=== PATIENT | female | born 1995 | race Caucasian/White ===

== ENCOUNTER 2018-04-11 17:05 | Observation (INO) | payer MEDICAID ==
[2018-04-11 18:40] LABS: BILIRUBIN INDIRECT 0.12
--- NOTE | 2018-04-12 10:52 | US ---
EXAM DATE: 04/11/18 PATIENT'S AGE: 23 Patient: PHAN OLIVER Facility: [place], [place] Site . Site : 1995 Study: US OB Pelvis [id number] 6:08:20 PM Ordering Physician: Sera Lazcano Final Report: INDICATION: Cholestasis TECHNIQUE: Ultrasound OB pelvis transabdominal. Real-time addison-scale imaging of the fetus was performed with color Doppler and spectral Doppler analysis of the umbilical artery without stress testing. COMPARISON: March 15, 2018. FINDINGS: Sonographic imaging demonstrates a single living intrauterine gestation. Fetus demonstrates a regular cardiac rate of 135 beats per minute. Amniotic fluid volume appears normal with an DEEPIKA of 16.1 cm. breathing movements, motion, and tone were all observed. IMPRESSION: Single viable intrauterine with a biophysical profile 11/03. Dictated by Sal Mcclellan MD @ Apr 11 2018 7:20PM (Electronic Signature) Report Signed by Proxy. SONA
== END 2018-04-11 18:45 | disposition home or self-care (01) ==
LOC: MW.OBCHECK 17:05 → MW.OB 17:07 → MW.OBCHECK 19:05
PROVIDERS: ADMIT Obstetrics & Gynecology; ATTEND Obstetrics & Gynecology
DX: O26.613 Liver and biliary tract disorders in pregnancy, third trimester (principal); K83.1 Obstruction of bile duct; Z3A.37 37 weeks gestation of pregnancy
CPT/HCPCS: 36415; 59025; 76819; 76819-26; 80076; 85025

== ENCOUNTER 2018-04-16 12:43 | Inpatient (IN) | payer MEDICAID ==
[2018-04-16] MEDS ORDERED: Sodium Chloride 0.9% 10 ML Syringe FLUSH PRN (12:58)
[2018-04-16] MEDS ORDERED: Ondansetron 4 MG/2 ML SDV IV PRN (12:58)
[2018-04-16] MEDS ORDERED: Sodium Chloride 0.9% 2.5 ML Syringe FLUSH PRN (12:58)
[2018-04-16] MEDS ORDERED: Terbutaline 1 MG/ML SDV SUBCUT PRN (12:58)
[2018-04-16] MEDS ORDERED: Carboprost Tromethamine 250 MCG/1 ML Amp IM PRN (12:58)
[2018-04-16] MEDS ORDERED: Misoprostol 25 MCG (1/4 of 100 MCG) Tab VAG PRN ×2 (12:58→17:00)
[2018-04-16] MEDS ORDERED: Tranexamic Acid 1,000 MG in Sodium Chloride 0.9% 100 ML IV PRN (12:58)
[2018-04-16] MEDS ORDERED: Misoprostol 200 MCG Tab PO PRN (12:58)
[2018-04-16] MEDS ORDERED: Lidocaine 1% 50 ML MDV INJECT PRN (12:58)
[2018-04-16] MEDS ORDERED: Methylergonovine 0.2 MG/1 ML Amp IM PRN (12:58)
[2018-04-16] MEDS ORDERED: Nalbuphine 10 MG/1 ML Vial IVPUSH PRN (12:58)
[2018-04-16] MEDS ORDERED: Misoprostol 25 MCG (1/4 of 100 MCG) Tab PO PRN ×2 (12:58→17:00)
[2018-04-16] MEDS ORDERED: Water For Irrigation,Sterile 1,000 ML Container IRR PRN (12:58)
[2018-04-16] MEDS ORDERED: Oxytocin/0.9 % Sodium Chloride 30 UNIT/500 ML BAG IV SCH ×2 (13:00)
[2018-04-16] MEDS: Lactated Ringers 1,000 ML IV SCH ×3 (13:25→21:08)
[2018-04-16] MEDS ORDERED: Diphtheria,Pertussis(Acell),Tetanus Vaccine 0.5 ML Syringe IM ONE (18:47)
--- NOTE | 2018-04-16 20:09 | PCM.LDHP ---
L&D History of Present Illness - General Date of Service: 04/16/18 Admit Problem/Dx: Patient Status Order with Admit Dx/Problem 04/16/18 12:58 Patient Status [ADT] Routine Admission Diagnosis/Problem Admission Diagnosis/Problem - planned Source of Information: Patient History Limitations: Reports: No Limitations - History of Present Illness Improves with: Reports: None Worsens with: Reports: None Associated Symptoms: Reports: N - Related Data Allergies/Adverse Reactions: Allergies Allergy/AdvReac Type Severity Reaction Status Date / Time Sulfa (Sulfonamide Allergy Intermediate Hives Verified 04/08/18 22:19 Antibiotics) Cephalosporins Allergy Hives Verified 04/08/18 22:19 Home Medications: Home Meds Sertraline HCl [Zoloft] 75 mg PO DAILY 03/16/18 [History] hydrALAZINE HCl [Hydralazine HCl] 50 mg PO DAILY 03/16/18 [History] hydrOXYzine pamoate [Vistaril] 25 - 50 mg PO Q8H PRN 04/16/18 [History] Past Medical History - Past Health History Medical/Surgical History: Denies Medical/Surgical History HEENT History: Reports: Otitis Media Other HEENT History: tonsilitis Respiratory History: Reports: Other (See Below) Other Respiratory History: pnuemonia 4 or 5 years ago Gastrointestinal History: Reports: None 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: , 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 Other OB/BYN History: IUD Psychiatric History: Reports: Anxiety, Depression Hematologic History: Reports: Idiopathic Thrombocytopenia, Other (See Below) Other Hematologic History: low platelets during - Infectious Disease History Infectious Disease History: Reports: Chicken Pox, Shingles - Past Surgical History GI Surgical History: Reports: Appendectomy Social & Family History - Family History Cardiac: Reports: Hypertension, [place] Other Cardiac Family History: mother OBGYN: Reports: Musculoskeletal: Reports: Arthritis Neurological: Reports: TIA Other Neurological Family History: mother Psychiatric: Reports: Depression Endocrine/Metabolic: Reports: Diabetes, type II Other Endocrine/Metabolic Family History: aunt and uncle Oncologic: Reports: Metastatic, Renal, Skin, Uterine - Caffeine Use Caffeine Use: Reports: None H&P Review of Systems - Review of Systems: Review Of Systems: See Below General: Reports: No Symptoms HEENT: Reports: No Symptoms Pulmonary: Reports: No Symptoms Cardiovascular: Reports: No Symptoms Gastrointestinal: Reports: No Symptoms Genitourinary: Reports: No Symptoms Musculoskeletal: Reports: No Symptoms Skin: Reports: No Symptoms Psychiatric: Reports: No Symptoms Neurological: Reports: No Symptoms Hematologic/Lymphatic: Reports: No Symptoms Immunologic: Reports: No Symptoms L&D Exam - Exam Exam: See Below - Vital Signs Weight: 63.503 kg - OB Specific Fundal Height In cm: 37 Contraction Intensity: Mild to Moderate Movement: Active Heart Tones: Present Presentation: Vertex - Mendoza Score Mendoza Score Cervix Position: Midposition Mendoza Score Consistency: Soft Mendoza Score Effacement: 51-70% Mendoza Score Dilation: 3-4 cm Mendoza Score 's Station: -2 Mendoza Score Total: 8 - Exam General: Alert, Oriented HEENT: PERRLA, Conjunctiva Clear, EACs Clear, EOMI, Hearing Intact, Mucosa Moist & [place]on, Nares Patent, Normal Nasal Septum, Posterior Pharynx Clear, TMs Clear Neck: Supple, Trachea Midline Lungs: Clear to Auscultation, Normal Respiratory Effort Cardiovascular: Regular Rate, Regular Rhythm GI/Abdominal Exam: Normal Bowel Sounds, Soft, Non-Tender, No Organomegaly, No Distention, No Abnormal Bruit, No Mass, Pelvis Stable Rectal Exam: Normal Exam, Normal Rectal Tone Genitourinary: Normal external exam, Normal bimanual exam, Normal speculum exam Back Exam: Normal Inspection, Full Range of Motion Extremities: Normal Inspection, Normal Range of Motion, Non-Tender, No Pedal Edema, Normal Capillary Refill Skin: Warm, Dry, Intact Neurological: Cranial Nerves Intact, Reflexes Equal Bilateral Psychiatric: Alert, Normal Affect, Normal Mood - Patient Data Lab Results Last 24 hrs: Laboratory Results - last 24 hr 04/16/18 04/16/18 Range/Units 13:20 13:20 WBC 8.16 (4.0-11.0) K/uL RBC 3.66 L (4.30-5.90) M/uL Hgb 10.6 L (12.0-16.0) g/dL Hct 32.1 L (36.0-46.0) % MCV 87.7 (80.0-98.0) fL MCH 29.0 (27.0-32.0) pg MCHC 33.0 (31.0-37.0) g/dL RDW Std Deviation 43.4 (28.0-62.0) fl RDW Coeff of Barber 14 (11.0-15.0) % Plt Count 98 L (150-400) K/uL MPV 12.00 (7.40-12.00) fL Nucleated RBC % 0.0 /100WBC Nucleated RBCs # 0 K/uL Blood Type B POSITIVE Antibody Screen NEGATIVE Result Diagrams: 04/16/18 13:20 Problem List Initiated/Reviewed/Updated: Yes Orders Last 24hrs: Active Orders 24 hr Category Date Time Status Patient Status [ADT] Routine ADT 04/16/18 12:58 Active Bedrest Bathroom Privileges [RC] ASDIRECTED Care 04/16/18 12:58 Active Communication Order [RC] ASDIRECTED Care 04/16/18 12:58 Active Communication Order [RC] ASDIRECTED Care 04/16/18 12:58 Active Communication Order [RC] ASDIRECTED Care 04/16/18 12:58 Active Heart Tones [RC] CONTINUOUS Care 04/16/18 12:58 Active Non Stress Test [RC] PER UNIT ROUTINE Care 04/16/18 12:58 Active May Shower [RC] ASDIRECTED Care 04/16/18 12:58 Active Notify Provider [RC] PRN Care 04/16/18 12:58 Active Notify Provider [RC] PRN Care 04/16/18 12:58 Active Notify Provider [RC] PRN Care 04/16/18 12:58 Active Notify Provider [RC] STAT Care 04/16/18 12:58 Active Oxygen Therapy [RC] ASDIRECTED Care 04/16/18 12:58 Active Peripheral IV Care [RC] . DIRECTED Care 04/16/18 12:58 Active Up ad Lizett [RC] ASDIRECTED Care 04/16/18 12:58 Active Vaccines to be Administered [RC] PER UNIT ROUTINE Care 04/16/18 18:47 Active Vaginal Exam [RC] PRN Care 04/16/18 12:58 Active Vaginal Exam [RC] PRN Care 04/16/18 12:58 Active Vital Signs [RC] PER UNIT ROUTINE Care 04/16/18 12:58 Active Vital Signs [RC] PER UNIT ROUTINE Care 04/16/18 12:58 Active Carboprost Tromethamine [Hemabate DS] Med 04/16/18 12:58 Active 250 mcg IM ASDIRECTED PRN Lactated Ringers [Ringers, Lactated] 1,000 ml Med 04/16/18 13:00 Active IV ASDIRECTED Lidocaine 1% [Xylocaine 1%] Med 04/16/18 12:58 Active 50 ml INJECT ONETIME PRN Methylergonovine [Methergine] Med 04/16/18 12:58 Active 0.2 mg IM ASDIRECTED PRN Nalbuphine [Nubain] Med 04/16/18 12:58 Active 10 mg IVPUSH Q1H PRN Ondansetron [Zofran] Med 04/16/18 12:58 Active 4 mg IV Q6H PRN Oxytocin/0.9 % Sodium Chloride [Oxytocin 30 Unit/500 ML Med 04/16/18 13:00 Active -NS] 30 unit in 500 ml IV TITRATE Oxytocin/0.9 % Sodium Chloride [Oxytocin 30 Unit/500 ML Med 04/16/18 13:00 Active -NS] 30 unit in 500 ml IV TITRATE Sodium Chloride 0.9% [Saline Flush] Med 04/16/18 12:58 Active 10 ml FLUSH ASDIRECTED PRN Sodium Chloride 0.9% [Saline Flush] Med 04/16/18 12:58 Active 2.5 ml FLUSH ASDIRECTED PRN Terbutaline [Brethine] Med 04/16/18 12:58 Active 0.25 mg SUBCUT ASDIRECTED PRN Tranexamic Acid [Cyklokapron] 1,000 mg Med 04/16/18 12:58 Active Sodium Chloride 0.9% [Normal Saline] 100 ml IV ONETIME Water For Irrigation,Sterile [Sterile Water for Med 04/16/18 12:58 Active Irrigation] 1,000 ml IRR ASDIRECTED PRN miSOPROStol [Cytotec] Med 04/16/18 12:58 Active 200 mcg PO ONETIME PRN miSOPROStol [Cytotec] Med 04/16/18 12:58 Active 25 mcg PO ONETIME PRN miSOPROStol [Cytotec] Med 04/16/18 17:00 Active 25 mcg PO Q4H PRN miSOPROStol [Cytotec] Med 04/16/18 12:58 Active 25 mcg VAG ONETIME PRN miSOPROStol [Cytotec] Med 04/16/18 17:00 Active 25 mcg VAG Q4H PRN Scalp Electrode [WOMSER] Per Unit Routine Oth 04/16/18 12:58 Ordered Medication Administration Instruction [OM.PC] Q3H Oth 04/16/18 13:00 Ordered Peripheral IV Insertion Adult [OM.PC] Routine Oth 04/16/18 12:58 Ordered Resuscitation Status Routine Resus Stat 04/16/18 12:58 Ordered Medication Orders Carboprost Tromethamine (Hemabate Ds) 250 mcg IM ASDIRECTED PRN PRN Reason: Post Hemorrhage Lactated Ringer's (Ringers, Lactated) 1,000 mls @ 150 mls/hr IV ASDIRECTED MICHAEL Last Admin: 04/16/18 13:25 Dose: 150 mls/hr Oxytocin/Sodium Chloride (Oxytocin 30 Unit/500 Ml-Ns) 30 unit in 500 mls @ 999 mls/hr IV TITRATE MICHAEL Oxytocin/Sodium Chloride (Oxytocin 30 Unit/500 Ml-Ns) 30 unit in 500 mls @ 2 mls/hr IV TITRATE MICHAEL; Protocol Tranexamic Acid 1,000 mg/ (Sodium Chloride) 110 mls @ 660 mls/hr IV ONETIME PRN PRN Reason: Bleeding Lidocaine HCl (Xylocaine 1%) 50 ml INJECT ONETIME PRN PRN Reason: Laceration repair Methylergonovine Maleate (Methergine) 0.2 mg IM ASDIRECTED PRN PRN Reason: Post Hemorrhage Misoprostol (Cytotec) 200 mcg PO ONETIME PRN PRN Reason: Post Hemorrhage Misoprostol (Cytotec) 25 mcg VAG ONETIME PRN PRN Reason: Cervical Ripening Last Admin: 04/16/18 14:58 Dose: 25 mcg Misoprostol (Cytotec) 25 mcg VAG Q4H PRN PRN Reason: Cervical Ripening Misoprostol (Cytotec) 25 mcg PO ONETIME PRN PRN Reason: Cervical Ripening Last Admin: 04/16/18 14:58 Dose: 25 mcg Misoprostol (Cytotec) 25 mcg PO Q4H PRN PRN Reason: Cervical Ripening Nalbuphine HCl (Nubain) 10 mg IVPUSH Q1H PRN PRN Reason: Pain (severe 7-10) Ondansetron HCl (Zofran) 4 mg IV Q6H PRN PRN Reason: Nausea/Vomiting Sodium Chloride (Saline Flush) 10 ml FLUSH ASDIRECTED PRN PRN Reason: Keep Vein Open Sodium Chloride (Saline Flush) 2.5 ml FLUSH ASDIRECTED PRN PRN Reason: Keep Vein Open Sterile Water (Sterile Water For Irrigation) 1,000 ml IRR ASDIRECTED PRN PRN Reason: delivery Terbutaline Sulfate (Brethine) 0.25 mg SUBCUT ASDIRECTED PRN PRN Reason: Tacysystole Assessment/Plan Comment:: Pt. 38+ 2 admitted for elective induction because of Cholestasis. She will be induced with Cytotec and pitocin. she can have epidural when it is appropriate.
[2018-04-16] MEDS ORDERED: Lidocaine HCl/EPINEPHrine 5 ML IJ ONE (20:56)
[2018-04-16] MEDS ORDERED: Ropivacaine 0.2% 2 MG/ML 20 ML SDV ONE (20:56)
[2018-04-16] MEDS ORDERED: Ropivacaine HCl/PF 100 ML ONE (20:57)
[2018-04-16] MEDS ORDERED: fentaNYL 100 MCG/2 ML SDV ONE (20:57)
--- NOTE | 2018-04-16 21:44 | PCM.PREANE ---
Preanesthetic Assessment - Anesthesia/Transfusion/Family Hx Family History of Anesthesia Reaction: No - Review of Systems General: No Symptoms Pulmonary: No Symptoms Cardiovascular: No Symptoms Gastrointestinal: No Symptoms Neurological: No Symptoms Other: Reports: None (Denies any bleeding tendency or family hx of bleeding problems despite low platelets) - Physical Assessment Height: 1.6 m Weight: 63.503 kg ASA Class: 3 Mental Status: Alert & Oriented x3 Airway Class: Mallampati = 2 Dentition: Reports: Normal Dentition ROM/Head Extension: Full - Lab Values: Laboratory Last Values WBC 8.16 K/uL (4.0-11.0) 04/16/18 13:20 RBC 3.66 M/uL (4.30-5.90) L 04/16/18 13:20 Hgb 10.6 g/dL (12.0-16.0) L 04/16/18 13:20 Hct 32.1 % (36.0-46.0) L 04/16/18 13:20 MCV 87.7 fL (80.0-98.0) 04/16/18 13:20 MCH 29.0 pg (27.0-32.0) 04/16/18 13:20 MCHC 33.0 g/dL (31.0-37.0) 04/16/18 13:20 RDW Std Deviation 43.4 fl (28.0-62.0) 04/16/18 13:20 RDW Coeff of Barber 14 % (11.0-15.0) 04/16/18 13:20 Plt Count 98 K/uL (150-400) L 04/16/18 13:20 MPV 12.00 fL (7.40-12.00) 04/16/18 13:20 Nucleated RBC % 0.0 /100WBC 04/16/18 13:20 Nucleated RBCs # 0 K/uL 04/16/18 13:20 Blood Type B POSITIVE 04/16/18 13:20 Antibody Screen NEGATIVE 04/16/18 13:20 - Allergies Allergies/Adverse Reactions: Allergies Allergy/AdvReac Type Severity Reaction Status Date / Time Sulfa (Sulfonamide Allergy Intermediate Hives Verified 04/08/18 22:19 Antibiotics) Cephalosporins Allergy Hives Verified 04/08/18 22:19 - Acknowledgements Anesthesia Type Planned: Epidural Pt an Appropriate Candidate for the Planned Anesthesia: Yes Alternatives and Risks of Anesthesia Discussed w Pt/Guardian: Yes Pt/Guardian Understands and Agrees with Anesthesia Plan: Yes PreAnesthesia Questionnaire - Past Health History Medical/Surgical History: Denies Medical/Surgical History HEENT History: Reports: Otitis Media Other HEENT History: tonsilitis Respiratory History: Reports: Other (See Below) Other Respiratory History: pnuemonia 4 or 5 years ago Gastrointestinal History: Reports: None 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: , 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 Other OB/BYN History: IUD Psychiatric History: Reports: Anxiety, Depression Hematologic History: Reports: Idiopathic Thrombocytopenia, Other (See Below) Other Hematologic History: low platelets during - Infectious Disease History Infectious Disease History: Reports: Chicken Pox, Shingles - Past Surgical History GI Surgical History: Reports: Appendectomy - HOME MEDS Home Medications: Home Meds Sertraline HCl [Zoloft] 75 mg PO DAILY 03/16/18 [History] hydrALAZINE HCl [Hydralazine HCl] 50 mg PO DAILY 03/16/18 [History] hydrOXYzine pamoate [Vistaril] 25 - 50 mg PO Q8H PRN 04/16/18 [History] - CURRENT (IN HOUSE) MEDS Current Meds: Current Medications Carboprost Tromethamine (Hemabate Ds) 250 mcg IM ASDIRECTED PRN PRN Reason: Post Hemorrhage Lactated Ringer's (Ringers, Lactated) 1,000 mls @ 150 mls/hr IV ASDIRECTED MICHAEL Last Admin: 04/16/18 21:08 Dose: 150 mls/hr Oxytocin/Sodium Chloride (Oxytocin 30 Unit/500 Ml-Ns) 30 unit in 500 mls @ 999 mls/hr IV TITRATE MICHAEL Oxytocin/Sodium Chloride (Oxytocin 30 Unit/500 Ml-Ns) 30 unit in 500 mls @ 2 mls/hr IV TITRATE MICHAEL; Protocol Last Admin: 04/16/18 20:09 Dose: 2 munits/min, 2 mls/hr Tranexamic Acid 1,000 mg/ (Sodium Chloride) 110 mls @ 660 mls/hr IV ONETIME PRN PRN Reason: Bleeding Lidocaine HCl (Xylocaine 1%) 50 ml INJECT ONETIME PRN PRN Reason: Laceration repair Methylergonovine Maleate (Methergine) 0.2 mg IM ASDIRECTED PRN PRN Reason: Post Hemorrhage Misoprostol (Cytotec) 200 mcg PO ONETIME PRN PRN Reason: Post Hemorrhage Misoprostol (Cytotec) 25 mcg VAG ONETIME PRN PRN Reason: Cervical Ripening Last Admin: 04/16/18 14:58 Dose: 25 mcg Misoprostol (Cytotec) 25 mcg VAG Q4H PRN PRN Reason: Cervical Ripening Misoprostol (Cytotec) 25 mcg PO ONETIME PRN PRN Reason: Cervical Ripening Last Admin: 04/16/18 14:58 Dose: 25 mcg Misoprostol (Cytotec) 25 mcg PO Q4H PRN PRN Reason: Cervical Ripening Nalbuphine HCl (Nubain) 10 mg IVPUSH Q1H PRN PRN Reason: Pain (severe 7-10) Ondansetron HCl (Zofran) 4 mg IV Q6H PRN PRN Reason: Nausea/Vomiting Sodium Chloride (Saline Flush) 10 ml FLUSH ASDIRECTED PRN PRN Reason: Keep Vein Open Sodium Chloride (Saline Flush) 2.5 ml FLUSH ASDIRECTED PRN PRN Reason: Keep Vein Open Sterile Water (Sterile Water For Irrigation) 1,000 ml IRR ASDIRECTED PRN PRN Reason: delivery Terbutaline Sulfate (Brethine) 0.25 mg SUBCUT ASDIRECTED PRN PRN Reason: Tacysystole Discontinued Medications Diphtheria/Tetanus/Acell Pertussis (Adacel) 0.5 ml IM .ONCE ONE Stop: 04/16/18 18:48 Fentanyl (Sublimaze) Confirm Administered Dose 300 mcg .ROUTE .STK-MED ONE Stop: 04/16/18 20:58 Ropivacaine (Naropin 0.2%) Confirm Administered Dose 100 mls @ as directed .ROUTE .STK-MED ONE Stop: 04/16/18 20:58 Lidocaine/Epinephrine (Lidocaine 1.5%-Epi 1:200,000) Confirm Administered Dose 5 ml IJ .STK-MED ONE Stop: 04/16/18 20:57 Ropivacaine (Naropin 0.2%) Confirm Administered Dose 20 ml .ROUTE .STK-MED ONE Stop: 04/16/18 20:57
[2018-04-16] MEDS ORDERED: Witch Hazel Medicated Pads 40/Jar TOP PRN (22:32)
[2018-04-16] MEDS ORDERED: oxyCODONE 5 MG Tab PO PRN (22:32)
[2018-04-16] MEDS ORDERED: Ibuprofen 400 MG Tab PO PRN (22:32)
[2018-04-16] MEDS ORDERED: Docusate Sodium 100 MG Cap PO PRN (22:32)
[2018-04-16] MEDS ORDERED: Benzocaine/Menthol 20%-0.5% Spray 78 GM Cannister TOP PRN (22:32)
[2018-04-16] MEDS ORDERED: Lanolin 100% Cream 7 GM Tube TOP PRN (22:32)
[2018-04-16] MEDS ORDERED: Bisacodyl 10 MG Supp RECTAL PRN (22:32)
[2018-04-16] MEDS ORDERED: Acetaminophen 500 MG Tab PO PRN ×2 (22:32)
--- NOTE | 2018-04-17 01:14 | OR ---
SURGEON: Neno Zamora MD DATE OF PROCEDURE: Ms. Samano is 23-year-old. She is para 1-0-0-1. She is followed jointly by me and our nurse functional mental disability teacher. Her is complicated by cholestasis at the late of her . She was 36 + 3. She was admitted for elective induction because of extensive itching. Her GBS status was negative. The patient was induced with Cytotec and Pitocin. She responded to that very well. When she was 5 cm, she had an artificial rupture of the membrane by me with clear fluid. The patient was 5, complete vertex, and -1 station. She had epidural anesthesia for labor analgesia, and then proceeded later on to be complete and she pushed for about 35 minutes, and she was able to accomplish normal spontaneous vaginal delivery of a male fetus, cried immediately, and the placenta delivered spontaneous, complete, and intact. There was no need for episiotomy. There was no labial or perineal laceration. Estimated blood loss was 250 to 300 mL. heart rate was category 1 through the entire process of labor. There was no complication in the labor or the . KERI / JOHN /[id number]
[2018-04-17] MEDS: Ibuprofen 800 MG Tab PO PRN ×3 (10:20→23:24)
--- NOTE | 2018-04-17 11:18 | PCM48HPAN ---
Post Anesthesia Note - EVALUATION WITHIN 48HRS OF ANESTHETIC Vital Signs in Normal Range: Yes Patient Participated in Evaluation: Yes Respiratory Function Stable: Yes Airway Patent: Yes Cardiovascular Function Stable: Yes Hydration Status Stable: Yes Pain Control Satisfactory: Yes Nausea and Vomiting Control Satisfactory: Yes Mental Status Recovered: Yes Resp Rate: 20 - COMMENTS/OBSERVATIONS Free Text/Narrative:: Denies any complaints at this time.
--- NOTE | 2018-04-17 11:24 | PCM.PNPP ---
- General Info Date of Service: 04/17/18 Functional Status: Reports: Pain Controlled - Review of Systems General: Reports: No Symptoms HEENT: Reports: No Symptoms Pulmonary: Reports: No Symptoms Cardiovascular: Reports: No Symptoms Gastrointestinal: Reports: No Symptoms Genitourinary: Reports: No Symptoms Musculoskeletal: Reports: No Symptoms Skin: Reports: No Symptoms Neurological: Reports: No Symptoms Psychiatric: Reports: No Symptoms - General Info Date of Service: 04/17/18 - Patient Data Vital Signs - Most Recent: Last Vital Signs Temp 36.5 C 04/17/18 09:00 Pulse 68 04/17/18 09:00 Resp 20 04/17/18 11:17 BP 112/81 04/17/18 09:00 Pulse Ox 96 04/17/18 09:00 Weight - Most Recent: 63.503 kg Lab Results - Last 24 Hours: Laboratory Results - last 24 hr 04/16/18 04/16/18 04/17/18 Range/Units 13:20 13:20 05:54 WBC 8.16 (4.0-11.0) K/uL RBC 3.66 L (4.30-5.90) M/uL Hgb 10.6 L 10.7 L (12.0-16.0) g/dL Hct 32.1 L 31.8 L (36.0-46.0) % MCV 87.7 (80.0-98.0) fL MCH 29.0 (27.0-32.0) pg MCHC 33.0 (31.0-37.0) g/dL RDW Std Deviation 43.4 (28.0-62.0) fl RDW Coeff of Barber 14 (11.0-15.0) % Plt Count 98 L (150-400) K/uL MPV 12.00 (7.40-12.00) fL Nucleated RBC % 0.0 /100WBC Nucleated RBCs # 0 K/uL Blood Type B POSITIVE Antibody Screen NEGATIVE Med Orders - Current: Current Medications Acetaminophen (Tylenol Extra Strength) 500 mg PO Q4H PRN PRN Reason: Pain Acetaminophen (Tylenol Extra Strength) 1,000 mg PO Q4H PRN PRN Reason: Pain Benzocaine/Menthol (Dermoplast Pain Relief 20%-0.5% [place]) 78 gm TOP ASDIRECTED PRN PRN Reason: Perineal Comfort Measure Bisacodyl (Dulcolax) 10 mg RECTAL ONETIME PRN PRN Reason: Constipation Carboprost Tromethamine (Hemabate Ds) 250 mcg IM ASDIRECTED PRN PRN Reason: Post Hemorrhage Docusate Sodium (Colace) 100 mg PO BID PRN PRN Reason: Constipation Emollient Ointment (Lansinoh Hpa) 0 gm TOP ASDIRECTED PRN PRN Reason: Sore Nipples Lactated Ringer's (Ringers, Lactated) 1,000 mls @ 150 mls/hr IV ASDIRECTED MICHAEL Last Admin: 04/16/18 21:08 Dose: 150 mls/hr Oxytocin/Sodium Chloride (Oxytocin 30 Unit/500 Ml-Ns) 30 unit in 500 mls @ 999 mls/hr IV TITRATE MICHAEL Oxytocin/Sodium Chloride (Oxytocin 30 Unit/500 Ml-Ns) 30 unit in 500 mls @ 2 mls/hr IV TITRATE MICHAEL; Protocol Last Admin: 04/16/18 20:09 Dose: 2 munits/min, 2 mls/hr Tranexamic Acid 1,000 mg/ (Sodium Chloride) 110 mls @ 660 mls/hr IV ONETIME PRN PRN Reason: Bleeding Ibuprofen (Motrin) 400 mg PO Q4H PRN PRN Reason: Pain Ibuprofen (Motrin) 800 mg PO Q6H PRN PRN Reason: Pain Last Admin: 04/17/18 10:20 Dose: 800 mg Lidocaine HCl (Xylocaine 1%) 50 ml INJECT ONETIME PRN PRN Reason: Laceration repair Methylergonovine Maleate (Methergine) 0.2 mg IM ASDIRECTED PRN PRN Reason: Post Hemorrhage Misoprostol (Cytotec) 200 mcg PO ONETIME PRN PRN Reason: Post Hemorrhage Misoprostol (Cytotec) 25 mcg VAG ONETIME PRN PRN Reason: Cervical Ripening Last Admin: 04/16/18 14:58 Dose: 25 mcg Misoprostol (Cytotec) 25 mcg VAG Q4H PRN PRN Reason: Cervical Ripening Misoprostol (Cytotec) 25 mcg PO ONETIME PRN PRN Reason: Cervical Ripening Last Admin: 04/16/18 14:58 Dose: 25 mcg Misoprostol (Cytotec) 25 mcg PO Q4H PRN PRN Reason: Cervical Ripening Nalbuphine HCl (Nubain) 10 mg IVPUSH Q1H PRN PRN Reason: Pain (severe 7-10) Ondansetron HCl (Zofran) 4 mg IV Q6H PRN PRN Reason: Nausea/Vomiting Oxycodone HCl (Oxycodone) 5 mg PO Q2H PRN PRN Reason: Pain Sodium Chloride (Saline Flush) 10 ml FLUSH ASDIRECTED PRN PRN Reason: Keep Vein Open Sodium Chloride (Saline Flush) 2.5 ml FLUSH ASDIRECTED PRN PRN Reason: Keep Vein Open Sterile Water (Sterile Water For Irrigation) 1,000 ml IRR ASDIRECTED PRN PRN Reason: delivery Terbutaline Sulfate (Brethine) 0.25 mg SUBCUT ASDIRECTED PRN PRN Reason: Tacysystole Witch Nancy (Tucks) 1 pad TOP ASDIRECTED PRN PRN Reason: comfort care Discontinued Medications Diphtheria/Tetanus/Acell Pertussis (Adacel) 0.5 ml IM .ONCE ONE Stop: 04/16/18 18:48 Fentanyl (Sublimaze) Confirm Administered Dose 300 mcg .ROUTE .STK-MED ONE Stop: 04/16/18 20:58 Ropivacaine (Naropin 0.2%) Confirm Administered Dose 100 mls @ as directed .ROUTE .STK-MED ONE Stop: 04/16/18 20:58 Lidocaine/Epinephrine (Lidocaine 1.5%-Epi 1:200,000) Confirm Administered Dose 5 ml IJ .STK-MED ONE Stop: 04/16/18 20:57 Ropivacaine (Naropin 0.2%) Confirm Administered Dose 20 ml .ROUTE .STK-MED ONE Stop: 04/16/18 20:57 - Interaction Infant Disposition, : in Room with Family Interaction: Holding Feeding: Attempted ; Nursed Fair/Poor Support Person: Significant Other - Recovery Exam Fundal Tone: Firm Fundal Level: 1 Fingerbreadths Below Umbilicus Fundal Placement: Right Lochia Amount: Scant, Small Lochia Color: Rubra/Red Perineum Description: Intact, Minimal Bruising/Swelling Episiotomy/Laceration: None Bladder Status: Voiding Urinary Elimination: Voided - Exam General: Alert, Oriented HEENT: Pupils Equal Neck: Supple Lungs: Clear to Auscultation, Normal Respiratory Effort Cardiovascular: Regular Rate, Regular Rhythm GI/Abdominal Exam: Normal Bowel Sounds, Soft, Non-Tender, No Organomegaly, No Distention, No Abnormal Bruit, No Mass, Pelvis Stable Extremities: Normal Inspection, Normal Range of Motion, Non-Tender, No Pedal Edema, Normal Capillary Refill Skin: Warm, Dry, Intact Wound/Incisions: Healing Well Neurological: No New Focal Deficit Psy/Mental Status: Alert, Normal Affect, Normal Mood - Problem List Review Problem List Initiated/Reviewed/Updated: Yes - My Orders Last 24 Hours: My Active Orders 04/16/18 12:58 Carboprost Tromethamine [Hemabate DS] 250 mcg IM ASDIRECTED PRN Lidocaine 1% [Xylocaine 1%] 50 ml INJECT ONETIME PRN Methylergonovine [Methergine] 0.2 mg IM ASDIRECTED PRN Nalbuphine [Nubain] 10 mg IVPUSH Q1H PRN Ondansetron [Zofran] 4 mg IV Q6H PRN Sodium Chloride 0.9% [Saline Flush] 10 ml FLUSH ASDIRECTED PRN Sodium Chloride 0.9% [Saline Flush] 2.5 ml FLUSH ASDIRECTED PRN Terbutaline [Brethine] 0.25 mg SUBCUT ASDIRECTED PRN Tranexamic Acid [Cyklokapron] 1,000 mg Sodium Chloride 0.9% [Normal Saline] 100 ml IV ONETIME Water For Irrigation,Sterile [Sterile Water for Irrigation] 1,000 ml IRR ASDIRECTED PRN miSOPROStol [Cytotec] 200 mcg PO ONETIME PRN miSOPROStol [Cytotec] 25 mcg PO ONETIME PRN miSOPROStol [Cytotec] 25 mcg VAG ONETIME PRN Scalp Electrode [WOMSER] Per Unit Routine Peripheral IV Insertion Adult [OM.PC] Routine Resuscitation Status Routine 04/16/18 13:00 Lactated Ringers [Ringers, Lactated] 1,000 ml IV ASDIRECTED Oxytocin/0.9 % Sodium Chloride [Oxytocin 30 Unit/500 ML-NS] 30 unit in 500 ml IV TITRATE Oxytocin/0.9 % Sodium Chloride [Oxytocin 30 Unit/500 ML-NS] 30 unit in 500 ml IV TITRATE Medication Administration Instruction [OM.PC] Q3H 04/16/18 17:00 miSOPROStol [Cytotec] 25 mcg PO Q4H PRN miSOPROStol [Cytotec] 25 mcg VAG Q4H PRN 04/16/18 22:32 Patient Status [ADT] Routine May Shower [RC] ASDIRECTED Up ad Lizett [RC] ASDIRECTED Vital Signs [RC] PER UNIT ROUTINE Acetaminophen [Tylenol Extra Strength] 1,000 mg PO Q4H PRN Acetaminophen [Tylenol Extra Strength] 500 mg PO Q4H PRN Benzocaine/Menthol [Dermoplast Pain Relief 20%-0.5% [place]] 78 gm TOP ASDIRECTED PRN Bisacodyl [Dulcolax] 10 mg RECTAL ONETIME PRN Docusate Sodium [Colace] 100 mg PO BID PRN Ibuprofen [Motrin] 400 mg PO Q4H PRN Ibuprofen [Motrin] 800 mg PO Q6H PRN Lanolin [Lansinoh HPA] See Dose Instructions TOP ASDIRECTED PRN Witch Nancy [Tucks] 1 pad TOP ASDIRECTED PRN oxyCODONE 5 mg PO Q2H PRN Assess Lochia [WOMSER] Per Unit Routine Assess Uterine Involution [WOMSER] Per Unit Routine Peripheral IV Discontinue [OM.PC] Routine - Assessment Assessment:: S/P she like to be discharge today. - Plan Plan:: Pt. 38+ 2 admitted for elective induction because of Cholestasis. She will be induced with Cytotec and pitocin. she can have epidural when it is appropriate.
[2018-04-17 20:36] VITALS: BP 135/80
== END 2018-04-18 00:10 | disposition home or self-care (01) | DRG 805 ==
LOC: MW.OB 12:43 → OBSVTOIN 22:32 → MW.OB 22:32
PROVIDERS: ADMIT Obstetrics & Gynecology; ATTEND Obstetrics & Gynecology
PROC: 3E033VJ Introduction of Other Hormone into Peripheral Vein, Percutaneous Approach (ICD-10-PCS; principal; 2018-04-16)
PROC: 10907ZC Drainage of Amniotic Fluid, Therapeutic from Products of Conception, Via Natural or Artificial Opening (ICD-10-PCS; principal; 2018-04-16)
PROC: 10E0XZZ Delivery of Products of Conception, External Approach (ICD-10-PCS; principal; 2018-04-16)
PROC: 3E0P7VZ Introduction of Hormone into Female Reproductive, Via Natural or Artificial Opening (ICD-10-PCS; principal; 2018-04-16)
PROC: 00HU33Z Insertion of Infusion Device into Spinal Canal, Percutaneous Approach (ICD-10-PCS; 2018-04-16)
PROC: 3E0R3BZ Introduction of Anesthetic Agent into Spinal Canal, Percutaneous Approach (ICD-10-PCS; 2018-04-16)
DX: O26.62 Liver and biliary tract disorders in childbirth (principal); K83.1 Obstruction of bile duct; Z37.0 Single live birth; O99.12 Other diseases of the blood and blood-forming organs and certain disorders involving the immune mechanism complicating childbirth; D69.3 Immune thrombocytopenic purpura; O99.344 Other mental disorders complicating childbirth; F41.9 Anxiety disorder, unspecified; F32.9 Major depressive disorder, single episode, unspecified; Z88.1 Allergy status to other antibiotic agents; Z88.2 Allergy status to sulfonamides; Z79.899 Other long term (current) drug therapy; Z3A.38 38 weeks gestation of pregnancy
CPT/HCPCS: 01967; 36415; 59025; 59409; 85014; 85018; 85027; 86850; 86900; 86901; A9270-GY; J2590; J2795; J3010; J7120

== ENCOUNTER 2018-06-24 22:00 | Emergency (ER) | payer MEDICAID ==
--- NOTE | 2018-06-24 22:38 | EDM.PDOC ---
ED HPI GENERAL MEDICAL PROBLEM - General Chief Complaint: Eye Problems Stated Complaint: PINK EYE Time Seen by Provider: 06/24/18 22:30 - History of Present Illness INITIAL COMMENTS - FREE TEXT/NARRATIVE: HISTORY AND PHYSICAL: History of present illness: Patient 23-year-old female presents with concern of pinkeye her children had similar infection recently she also complains of sore throat. Review of systems: As per history of present illness and below otherwise all systems reviewed and negative. Past medical history: As per history of present illness and as reviewed below otherwise noncontributory. Surgical history: As per history of present illness and as reviewed below otherwise noncontributory. Social history: No reported history of drug or alcohol abuse. Family history: As per history of present illness and as reviewed below otherwise noncontributory. Physical exam: HEENT: Atraumatic, normocephalic, pupils reactive, injected conjunctiva negative for conjunctival pallor or scleral icterus, mucous membranes moist, throat clear, neck supple, nontender, trachea midline. Lungs: Clear to auscultation, breath sounds equal bilaterally, chest nontender. Heart: S1S2, regular, negative for clicks, rubs, or JVD. Abdomen: Soft, nondistended, nontender. Negative for masses or hepatosplenomegaly. Negative for costovertebral tenderness. Pelvis: Stable nontender. Genitourinary: Deferred. Rectal: Deferred. Extremities: Atraumatic, negative for cords or calf pain. Neurovascular unremarkable. Neuro: Awake, alert, oriented. Cranial nerves II through XII unremarkable. Cerebellum unremarkable. Motor and sensory unremarkable throughout. Exam nonfocal. Diagnostics: Rapid strep Therapeutics: None Impression: #1 conjunctivitis Definitive disposition and diagnosis as appropriate pending reevaluation and review of above. Right Eye Pain Score (Numeric/FACES): 7 - Related Data Allergies Allergy/AdvReac Type Severity Reaction Status Date / Time Sulfa (Sulfonamide Allergy Intermediate Hives Verified 06/24/18 22:07 Antibiotics) Cephalosporins Allergy Hives Verified 06/24/18 22:07 Home Meds: Home Meds . 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 Other BOX PRESS OPERATOR History: IUD Psychiatric History: Reports: Anxiety, Depression Hematologic History: Reports: Idiopathic Thrombocytopenia, Other (See Below) Other Hematologic History: low platelets during - Infectious Disease History Infectious Disease History: Reports: Chicken Pox, Shingles - Past Surgical History GI Surgical History: Reports: Appendectomy Social & Family History - Family History Cardiac: Reports: Hypertension, [place] Other Cardiac Family History: mother OBGYN: Reports: Musculoskeletal: Reports: Arthritis Neurological: Reports: TIA Other Neurological Family History: mother Psychiatric: Reports: Depression Endocrine/Metabolic: Reports: Diabetes, type II Other Endocrine/Metabolic Family History: aunt and uncle Oncologic: Reports: Metastatic, Renal, Skin, Uterine - Tobacco Use Smoking Status *Q: Current Every Day Smoker Years of Tobacco use: 5 Packs/Tins Daily: 0.5 - Caffeine Use Caffeine Use: Reports: Soda - Recreational Drug Use Recreational Drug Use: No ED ROS GENERAL - Review of Systems Review Of Systems: ROS reveals no pertinent complaints other than HPI. ED EXAM GENERAL W FULL EYE - Physical Exam Exam: See Below (See dictation) Course - Vital Signs Last Recorded V/S: Last Vital Signs Temp 36.9 C 06/24/18 22:13 Pulse 86 06/24/18 22:13 Resp 16 06/24/18 22:13 BP 119/83 06/24/18 22:13 Pulse Ox 99 06/24/18 22:13 Departure - Departure Time of Disposition: 22:37 Disposition: Home, Self-Care 01 Condition: Good Clinical Impression: Conjunctivitis - Discharge Information Referrals: PCP,None [Primary Care Provider] - Additional Instructions: The following information is given to patients seen in the emergency department who are being discharged to home. This information is to outline your options for follow-up care. We provide all patients seen in our emergency department with a follow-up referral. The need for follow-up, as well as the timing and circumstances, are variable depending upon the specifics of your emergency department visit. If you don't have a primary care physician on staff, we will provide you with a referral. We always advise you to contact your personal physician following an emergency department visit to inform them of the circumstance of the visit and for follow-up with them and/or the need for any referrals to a consulting specialist. The emergency department will also refer you to a specialist when appropriate. This referral assures that you have the opportunity for followup care with a specialist. All of these measure are taken in an effort to provide you with optimal care, which includes your followup. Under all circumstances we always encourage you to contact your private physician who remains a resource for coordinating your care. When calling for followup care, please make the office aware that this follow-up is from your recent emergency room visit. If for any reason you are refused follow-up, please contact the [facility] emergency department at and asked to speak to the emergency department charge nurse. [facility] [address] [place] [id number] Tobramycin ophthalmic drops as prescribed follow-up ophthalmology as needed as discussed return as needed as discussed
[2018-06-24 23:16] VITALS: BP 107/75
== END 2018-06-24 23:12 | disposition home or self-care (01) ==
LOC: MW.ED 22:00
DX: H10.9 Unspecified conjunctivitis (principal); F17.210 Nicotine dependence, cigarettes, uncomplicated; Z88.2 Allergy status to sulfonamides; Z88.1 Allergy status to other antibiotic agents
CPT/HCPCS: 87081; 87880-QW; 99283

== ENCOUNTER 2018-08-30 01:57 | Emergency (ER) | payer MEDICAID ==
[2018-08-30] MEDS ORDERED: Ondansetron 4 MG/2 ML SDV IVPUSH ONE ×2 (02:10→04:56)
[2018-08-30] MEDS ORDERED: Sodium Chloride 0.9% 2.5 ML Syringe FLUSH PRN (02:10)
[2018-08-30] MEDS ORDERED: Sodium Chloride 0.9% 1,000 ML IV ONE ×2 (02:10→03:06)
[2018-08-30] MEDS ORDERED: Sodium Chloride 0.9% 10 ML Syringe FLUSH PRN (02:10)
[2018-08-30] MEDS ORDERED: Famotidine 20 MG/2 ML SDV IVPUSH ONE (02:10)
--- NOTE | 2018-08-30 02:15 | EDM.PDOC ---
ED HPI GENERAL MEDICAL PROBLEM - General Chief Complaint: Gastrointestinal Problem Stated Complaint: ABDOMINAL PAIN, DEHYDRATION Time Seen by Provider: 08/30/18 02:01 - History of Present Illness INITIAL COMMENTS - FREE TEXT/NARRATIVE: HISTORY AND PHYSICAL: History of present illness: The patient is a healthy 23-year-old female who is here with her child, who is a patient for vomiting, who since being in the emergency department has begun having upper abdominal discomfort nausea and 3 episodes of vomiting. She says that her at home was also vomiting and she has no GI history. Initially when she came here with her baby she was not having symptoms but since being here and doing the workup on her child she has developed these symptoms as well. She has a history of an appendectomy but no other abdominal surgical histories. She's not any recent fever chills or upper respiratory symptoms and no diarrhea. The patient is breast-feeding her child Review of systems: As per history of present illness and below otherwise all systems reviewed and negative. Past medical history: As per history of present illness and as reviewed below otherwise noncontributory. Surgical history: As per history of present illness and as reviewed below otherwise noncontributory. Social history: No reported history of drug or alcohol abuse. Family history: As per history of present illness and as reviewed below otherwise noncontributory. Physical exam: General: Well-developed well-nourished thin female who is nontoxic and vital signs are noted by me HEENT: Atraumatic, normocephalic, negative for conjunctival pallor or scleral icterus, mucous membranes moist, throat clear, neck supple, nontender, trachea midline. Lungs: Clear to auscultation, breath sounds equal bilaterally, chest nontender. Heart: S1S2, regular rate and rhythm no overt murmurs Abdomen: Soft, nondistended, minimal tenderness in the upper abdomen without localization right or left and no rebound or guarding Negative for masses or hepatosplenomegaly. Pelvis: Deferred Genitourinary: Deferred. Rectal: Deferred. Extremities: Atraumatic, range of motion without defects or deficits Neurovascular unremarkable. Neuro: Awake, alert, oriented. Cranial nerves II through XII unremarkable. Cerebellum unremarkable. Motor and sensory unremarkable throughout. Exam nonfocal. Diagnostics: CBC CMP lipase UA UCG Therapeutics: IV fluids Zofran Pepcid Reglan Benadryl The patient is feeling better and has now produced a urine and she is finishing her second liter of IV fluids. She did have a small spit up in the garbage pail and I will give her another dose of Zofran as well as Zofran for home. We are giving her some ice chips and planning for discharge home with Zofran Patient has new wave of nausea and had an episode of a small amount of vomiting. We will give her Reglan and Benadryl and she is aware that her labs do not indicate any significant dehydration after the fluids and she now tells us that she does have Zofran at home from her that she can use. I told her that she will need to do sips of fluids and bites of bland food and that the vomiting may come and go over the next 24 hours. Impression: Nausea and vomiting Definitive disposition and diagnosis as appropriate pending reevaluation and review of above. Abdomen Pain Score (Numeric/FACES): 6 - Related Data Allergies Allergy/AdvReac Type Severity Reaction Status Date / Time Sulfa (Sulfonamide Allergy Intermediate Hives Verified 08/30/18 02:01 Antibiotics) Cephalosporins Allergy Hives Verified 08/30/18 02:01 Home Meds: Home Meds . [No Known Home Meds] 06/24/18 [History] Past Medical History - Past Health History Medical/Surgical History: Denies Medical/Surgical History HEENT History: Reports: Otitis Media Other HEENT History: tonsilitis Cardiovascular History: Reports: None Respiratory History: Reports: Other (See Below) Other Respiratory History: pnuemonia 4 or 5 years ago Gastrointestinal History: Reports: None Genitourinary History: Reports: None BUSINESS SUPPORT COORDINATOR History: Reports: , Spontaneous Other BUSINESS SUPPORT COORDINATOR History: IUD Musculoskeletal History: Reports: None Neurological History: Reports: None Psychiatric History: Reports: Anxiety, Depression Endocrine/Metabolic History: Reports: None Hematologic History: Reports: Idiopathic Thrombocytopenia, Other (See Below) Other Hematologic History: low platelets during Immunologic History: Reports: None Oncologic (Cancer) History: Reports: None Dermatologic History: Reports: None - Infectious Disease History Infectious Disease History: Reports: None - Past Surgical History Head Surgeries/Procedures: Reports: None GI Surgical History: Reports: Appendectomy Musculoskeletal Surgical History: Reports: None Social & Family History - Family History Family Medical History: Noncontributory Cardiac: Reports: Hypertension, [place] Other Cardiac Family History: mother OBGYN: Reports: Musculoskeletal: Reports: Arthritis Neurological: Reports: TIA Other Neurological Family History: mother Psychiatric: Reports: Depression Endocrine/Metabolic: Reports: Diabetes, type II Other Endocrine/Metabolic Family History: aunt and uncle Oncologic: Reports: Metastatic, Renal, Skin, Uterine - Tobacco Use Smoking Status *Q: Current Every Day Smoker Years of Tobacco use: 5 Packs/Tins Daily: 0.5 - Caffeine Use Caffeine Use: Reports: Energy Drinks - Recreational Drug Use Recreational Drug Use: No ED ROS GENERAL - Review of Systems Review Of Systems: ROS reveals no pertinent complaints other than HPI. ED EXAM, GENERAL - Physical Exam Exam: See Below (See dictation) Course - Vital Signs Last Recorded V/S: Last Vital Signs Temp 36.6 C 08/30/18 02:01 Pulse 90 08/30/18 02:01 Resp 18 08/30/18 02:01 BP 119/78 08/30/18 02:01 Pulse Ox 97 08/30/18 02:01 - Orders/Labs/Meds Orders: Active Orders 24 hr Category Date Time Status Sodium Chloride 0.9% [Saline Flush] Med 08/30/18 02:10 Active 10 ml FLUSH ASDIRECTED PRN Sodium Chloride 0.9% [Saline Flush] Med 08/30/18 02:10 Active 2.5 ml FLUSH ASDIRECTED PRN Saline Lock Insert [OM.PC] Stat Oth 08/30/18 02:09 Ordered Medication Orders Sodium Chloride (Saline Flush) 10 ml FLUSH ASDIRECTED PRN PRN Reason: Keep Vein Open Sodium Chloride (Saline Flush) 2.5 ml FLUSH ASDIRECTED PRN PRN Reason: Keep Vein Open Labs: Laboratory Tests 08/30/18 08/30/18 08/30/18 Range/Units 02:20 02:20 04:55 WBC 8.71 (4.0-11.0) K/uL RBC 4.71 (4.30-5.90) M/uL Hgb 14.7 (12.0-16.0) g/dL Hct 42.3 (36.0-46.0) % MCV 89.8 (80.0-98.0) fL MCH 31.2 (27.0-32.0) pg MCHC 34.8 (31.0-37.0) g/dL RDW Std Deviation 41.7 (28.0-62.0) fl RDW Coeff of Barber 13 (11.0-15.0) % Plt Count 164 (150-400) K/uL MPV 11.10 (7.40-12.00) fL Neut % (Auto) 59.3 (48.0-80.0) % Lymph % (Auto) 30.9 (16.0-40.0) % [place] % (Auto) 7.3 (0.0-15.0) % Eos % (Auto) 2.3 (0.0-7.0) % Baso % (Auto) 0.2 (0.0-1.5) % Neut # (Auto) 5.2 (1.4-5.7) K/uL Lymph # (Auto) 2.7 H (0.6-2.4) K/uL [place] # (Auto) 0.6 (0.0-0.8) K/uL Eos # (Auto) 0.2 (0.0-0.7) K/uL Baso # (Auto) 0.0 (0.0-0.1) K/uL Sodium 143 (136-145) mmol/L Potassium 3.7 (3.5-5.1) mmol/L Chloride 106 (98-107) mmol/L Carbon Dioxide 30.2 (21.0-32.0) mmol/L BUN 17 (7.0-18.0) mg/dL Creatinine 0.8 (0.6-1.0) mg/dL Est Cr Clr Drug Dosing 80.83 mL/min Estimated GFR (MDRD) > 60.0 ml/min Glucose 92 (74-106) mg/dL Calcium 9.4 (8.5-10.1) mg/dL Total Bilirubin 0.4 (0.2-1.0) mg/dL AST 13 L (15-37) IU/L ALT 20 (14-63) IU/L Alkaline Phosphatase 81 (46-116) U/L Total Protein 7.4 (6.4-8.2) g/dL Albumin 4.2 (3.4-5.0) g/dL Globulin 3.2 (2.6-4.0) g/dL Albumin/Globulin Ratio 1.3 (0.9-1.6) Lipase 148 (73-393) U/L Urine Color YELLOW Urine Appearance SLT CLOUDY Urine pH 7.0 (5.0-8.0) Ur Specific [place] 1.020 (1.001-1.035) Urine Protein TRACE H (NEGATIVE) mg/dL Urine Glucose (UA) NEGATIVE (NEGATIVE) mg/dL Urine Ketones NEGATIVE (NEGATIVE) mg/dL Urine Occult Blood NEGATIVE (NEGATIVE) Urine Nitrite NEGATIVE (NEGATIVE) Urine Bilirubin NEGATIVE (NEGATIVE) Urine Urobilinogen 0.2 (<2.0) EU/dL Ur Leukocyte Esterase NEGATIVE (NEGATIVE) Urine RBC NONE SEEN (0-2/HPF) Urine WBC 0-2 (0-5/HPF) Ur Epithelial Cells MODERATE (NONE-FEW) Urine Bacteria 1+ H (NEGATIVE) Urine Mucus MODERATE (NONE-MOD) Urine HCG, Qual (NEGATIVE) 08/30/18 Range/Units 04:55 WBC (4.0-11.0) K/uL RBC (4.30-5.90) M/uL Hgb (12.0-16.0) g/dL Hct (36.0-46.0) % MCV (80.0-98.0) fL MCH (27.0-32.0) pg MCHC (31.0-37.0) g/dL RDW Std Deviation (28.0-62.0) fl RDW Coeff of Barber (11.0-15.0) % Plt Count (150-400) K/uL MPV (7.40-12.00) fL Neut % (Auto) (48.0-80.0) % Lymph % (Auto) (16.0-40.0) % [place] % (Auto) (0.0-15.0) % Eos % (Auto) (0.0-7.0) % Baso % (Auto) (0.0-1.5) % Neut # (Auto) (1.4-5.7) K/uL Lymph # (Auto) (0.6-2.4) K/uL [place] # (Auto) (0.0-0.8) K/uL Eos # (Auto) (0.0-0.7) K/uL Baso # (Auto) (0.0-0.1) K/uL Sodium (136-145) mmol/L Potassium (3.5-5.1) mmol/L Chloride (98-107) mmol/L Carbon Dioxide (21.0-32.0) mmol/L BUN (7.0-18.0) mg/dL Creatinine (0.6-1.0) mg/dL Est Cr Clr Drug Dosing mL/min Estimated GFR (MDRD) ml/min Glucose (74-106) mg/dL Calcium (8.5-10.1) mg/dL Total Bilirubin (0.2-1.0) mg/dL AST (15-37) IU/L ALT (14-63) IU/L Alkaline Phosphatase (46-116) U/L Total Protein (6.4-8.2) g/dL Albumin (3.4-5.0) g/dL Globulin (2.6-4.0) g/dL Albumin/Globulin Ratio (0.9-1.6) Lipase (73-393) U/L Urine Color Urine Appearance Urine pH (5.0-8.0) Ur Specific [place] (1.001-1.035) Urine Protein (NEGATIVE) mg/dL Urine Glucose (UA) (NEGATIVE) mg/dL Urine Ketones (NEGATIVE) mg/dL Urine Occult Blood (NEGATIVE) Urine Nitrite (NEGATIVE) Urine Bilirubin (NEGATIVE) Urine Urobilinogen (<2.0) EU/dL Ur Leukocyte Esterase (NEGATIVE) Urine RBC (0-2/HPF) Urine WBC (0-5/HPF) Ur Epithelial Cells (NONE-FEW) Urine Bacteria (NEGATIVE) Urine Mucus (NONE-MOD) Urine HCG, Qual NEGATIVE (NEGATIVE) Meds: Medications Generic Name Dose Route Start Last Admin Trade Name Freq PRN Reason Stop Dose Admin Sodium Chloride 10 ml 08/30/18 02:10 Saline Flush FLUSH ASDIRECTED PRN Keep Vein Open Sodium Chloride 2.5 ml 08/30/18 02:10 Saline Flush FLUSH ASDIRECTED PRN Keep Vein Open Discontinued Medications Generic Name Dose Route Start Last Admin Trade Name Freq PRN Reason Stop Dose Admin Diphenhydramine HCl 25 mg 08/30/18 05:17 Benadryl IVPUSH 08/30/18 05:18 ONETIME ONE Famotidine 20 mg 08/30/18 02:10 08/30/18 02:32 Pepcid IVPUSH 06/04/19 02:11 20 mg ONETIME ONE Administration Sodium Chloride 1,000 mls @ 999 mls/hr 08/30/18 02:10 08/30/18 02:32 Normal Saline IV 08/30/18 03:10 999 mls/hr STAT ONE Administration Sodium Chloride 1,000 mls @ 999 mls/hr 08/30/18 03:06 08/30/18 03:50 Normal Saline IV 08/30/18 04:06 999 mls/hr STAT ONE Administration Metoclopramide HCl 10 mg 08/30/18 05:17 Reglan IV 08/30/18 05:18 ONETIME ONE Ondansetron HCl 4 mg 08/30/18 02:10 08/30/18 02:32 Zofran IVPUSH 08/30/18 02:11 4 mg ONETIME ONE Administration Ondansetron HCl 4 mg 08/30/18 04:56 08/30/18 05:02 Zofran IVPUSH 08/30/18 04:57 4 mg ONETIME ONE Administration Departure - Departure Time of Disposition: 05:20 Disposition: Home, Self-Care 01 Condition: Good Clinical Impression: Nausea and vomiting Qualifiers: Vomiting type: unspecified Vomiting Intractability: non-intractable Qualified Code(s): R11.2 - Nausea with vomiting, unspecified - Discharge Information Referrals: PCP,None [Primary Care Provider] - Forms: ED Department Discharge Additional Instructions: The following information is given to patients seen in the emergency department who are being discharged to home. This information is to outline your options for follow-up care. We provide all patients seen in our emergency department with a follow-up referral. The need for follow-up, as well as the timing and circumstances, are variable depending upon the specifics of your emergency department visit. If you don't have a primary care physician on staff, we will provide you with a referral. We always advise you to contact your personal physician following an emergency department visit to inform them of the circumstance of the visit and for follow-up with them and/or the need for any referrals to a consulting specialist. The emergency department will also refer you to a specialist when appropriate. This referral assures that you have the opportunity for followup care with a specialist. All of these measure are taken in an effort to provide you with optimal care, which includes your followup. Under all circumstances we always encourage you to contact your private physician who remains a resource for coordinating your care. When calling for followup care, please make the office aware that this follow-up is from your recent emergency room visit. If for any reason you are refused follow-up, please contact the [facility] emergency department at and ask to speak to the emergency department charge nurse. [facility] [address] Push hydration such as diluted Gatorade water and avoid caffeinated products. Introduced bites of bland foods over the next 24 hours and use Zofran you have been given as needed for nausea. Please call and schedule a follow-up appointment with your provider at the clinic or one of hours for reevaluation further care and return to ER as needed and as discussed. You may use the Zofran that you have at home as needed for nausea and vomiting. The symptoms will likely slowly improve over the next 24-36 hours. - My Orders Last 24 Hours: My Active Orders 08/30/18 02:09 Saline Lock Insert [OM.PC] Stat 08/30/18 02:10 Sodium Chloride 0.9% [Saline Flush] 10 ml FLUSH ASDIRECTED PRN Sodium Chloride 0.9% [Saline Flush] 2.5 ml FLUSH ASDIRECTED PRN - Assessment/Plan Last 24 Hours: My Active Orders 08/30/18 02:09 Saline Lock Insert [OM.PC] Stat 08/30/18 02:10 Sodium Chloride 0.9% [Saline Flush] 10 ml FLUSH ASDIRECTED PRN Sodium Chloride 0.9% [Saline Flush] 2.5 ml FLUSH ASDIRECTED PRN
[2018-08-30 02:51] LABS: CHLORIDE,CL 106 mmol/L (98-107); SODIUM,NA 143 mmol/L (136-145)
[2018-08-30] MEDS ORDERED: diphenhydrAMINE 50 MG/ML SDV IVPUSH ONE (05:17)
[2018-08-30] MEDS ORDERED: Metoclopramide 10 MG/2 ML SDV IV ONE (05:17)
[2018-08-30 05:50] VITALS: BP 122/79
== END 2018-08-30 06:00 | disposition home or self-care (01) ==
LOC: MW.ED 01:57
DX: R11.2 Nausea with vomiting, unspecified (principal); F17.210 Nicotine dependence, cigarettes, uncomplicated; Z88.2 Allergy status to sulfonamides; Z88.1 Allergy status to other antibiotic agents
CPT/HCPCS: 36415; 80053; 81001; 81025; 83690; 85025; 96361; 96374; 96375; 96376; 99284; J1200; J2405; J2765; J3490; J7040; 99283

== ENCOUNTER 2018-10-20 20:13 | Emergency (ER) | payer MEDICAID ==
--- NOTE | 2018-10-20 21:02 | EDM.PDOC ---
ED HPI GENERAL MEDICAL PROBLEM - General Chief Complaint: Genitourinary Problem Stated Complaint: PT HAS BLADDER INFECTION Time Seen by Provider: 10/20/18 21:01 Source of Information: Reports: Patient - History of Present Illness INITIAL COMMENTS - FREE TEXT/NARRATIVE: HISTORY AND PHYSICAL: History of present illness: []Patient presents with frequency hesitancy and dysuria for 3 days increasing in severity no fever nausea vomiting chills sweats Review of systems: As per history of present illness and below otherwise all systems reviewed and negative. Past medical history: As per history of present illness and as reviewed below otherwise noncontributory. Surgical history: As per history of present illness and as reviewed below otherwise noncontributory. Social history: No reported history of drug or alcohol abuse. Family history: As per history of present illness and as reviewed below otherwise noncontributory. Physical exam: HEENT: Atraumatic, normocephalic, pupils reactive, negative for conjunctival pallor or scleral icterus, mucous membranes moist, throat clear, neck supple, nontender, trachea midline. Lungs: Clear to auscultation, breath sounds equal bilaterally, chest nontender. Heart: S1S2, regular, negative for clicks, rubs, or JVD. Abdomen: Soft, nondistended, nontender. Negative for masses or hepatosplenomegaly. Negative for costovertebral tenderness. Pelvis: Stable nontender. Genitourinary: Deferred. Rectal: Deferred. Extremities: Atraumatic, negative for cords or calf pain. Neurovascular unremarkable. Neuro: Awake, alert, oriented. Cranial nerves II through XII unremarkable. Cerebellum unremarkable. Motor and sensory unremarkable throughout. Exam nonfocal. Diagnostics: UA hCG ] Therapeutics: [Cipro 500 by mouth twice a day #20 no refill ] Impression: [UTI ] Definitive disposition and diagnosis as appropriate pending reevaluation and review of above. lower abdomen Pain Score (Numeric/FACES): 6 - Related Data Allergies Allergy/AdvReac Type Severity Reaction Status Date / Time Sulfa (Sulfonamide Allergy Intermediate Hives Verified 10/20/18 20:25 Antibiotics) Cephalosporins Allergy Hives Verified 10/20/18 20:25 Home Meds: Home Meds . [No Known Home Meds] 06/24/18 [History] Past Medical History - Past Health History Medical/Surgical History: Denies Medical/Surgical History HEENT History: Reports: Otitis Media Other HEENT History: tonsilitis Cardiovascular History: Reports: None Respiratory History: Reports: Other (See Below) Other Respiratory History: pnuemonia 4 or 5 years ago Gastrointestinal History: Reports: None Genitourinary History: Reports: None SACK MAKER History: Reports: , Spontaneous Other SACK MAKER History: IUD placed in May 2018 Musculoskeletal History: Reports: None Neurological History: Reports: None Psychiatric History: Reports: Anxiety, Depression Endocrine/Metabolic History: Reports: None Hematologic History: Reports: Idiopathic Thrombocytopenia, Other (See Below) Other Hematologic History: low platelets during Immunologic History: Reports: None Oncologic (Cancer) History: Reports: None Dermatologic History: Reports: None - Infectious Disease History Infectious Disease History: Reports: Chicken Pox - Past Surgical History Head Surgeries/Procedures: Reports: None HEENT Surgical History: Reports: None Respiratory Surgical History: Reports: None GI Surgical History: Reports: Appendectomy Musculoskeletal Surgical History: Reports: None Social & Family History - Family History Family Medical History: Noncontributory Cardiac: Reports: Hypertension, [place] Other Cardiac Family History: mother OBGYN: Reports: Musculoskeletal: Reports: Arthritis Neurological: Reports: TIA Other Neurological Family History: mother Psychiatric: Reports: Depression Endocrine/Metabolic: Reports: Diabetes, type II Other Endocrine/Metabolic Family History: aunt and uncle Oncologic: Reports: Metastatic, Renal, Skin, Uterine - Tobacco Use Smoking Status *Q: Current Every Day Smoker Years of Tobacco use: 5 Packs/Tins Daily: 0.5 - Caffeine Use Caffeine Use: Reports: Energy Drinks - Recreational Drug Use Recreational Drug Use: No ED ROS GENERAL - Review of Systems Review Of Systems: See Below ED EXAM, GENERAL - Physical Exam Exam: See Below Course - Vital Signs Last Recorded V/S: Last Vital Signs Temp 97.7 F 10/20/18 20:20 Pulse 90 10/20/18 20:20 Resp 16 10/20/18 20:20 BP 110/62 10/20/18 20:20 Pulse Ox 96 10/20/18 20:20 - Orders/Labs/Meds Orders: Active Orders 24 hr Category Date Time Status CULTURE URINE [RM] Stat Lab 10/20/18 20:27 Received UA W/MICROSCOPIC [URIN] Stat Lab 10/20/18 20:27 Results Labs: Laboratory Tests 10/20/18 10/20/18 Range/Units 20:27 20:27 Urine Color YELLOW Urine Appearance CLOUDY Urine pH 7.0 (5.0-8.0) Ur Specific [place] 1.025 (1.001-1.035) Urine Protein 30 H (NEGATIVE) mg/dL Urine Glucose (UA) NEGATIVE (NEGATIVE) mg/dL Urine Ketones NEGATIVE (NEGATIVE) mg/dL Urine Occult Blood MODERATE H (NEGATIVE) Urine Nitrite POSITIVE H (NEGATIVE) Urine Bilirubin NEGATIVE (NEGATIVE) Urine Urobilinogen 0.2 (<2.0) EU/dL Ur Leukocyte Esterase MODERATE H (NEGATIVE) Urine HCG, Qual NEGATIVE (NEGATIVE) Departure - Departure Time of Disposition: 21:02 Disposition: Home, Self-Care 01 Condition: Good Clinical Impression: UTI, Urinary tract infectious disease - Discharge Information Referrals: Joon Rogel MD [Primary Care Provider] - Additional Instructions: The following information is given to patients seen in the emergency department who are being discharged to home. This information is to outline your options for follow-up care. We provide all patients seen in our emergency department with a follow-up referral. The need for follow-up, as well as the timing and circumstances, are variable depending upon the specifics of your emergency department visit. If you don't have a primary care physician on staff, we will provide you with a referral. We always advise you to contact your personal physician following an emergency department visit to inform them of the circumstance of the visit and for follow-up with them and/or the need for any referrals to a consulting specialist. The emergency department will also refer you to a specialist when appropriate. This referral assures that you have the opportunity for follow-up care with a specialist. All of these measure are taken in an effort to provide you with optimal care, which includes your follow-up. Under all circumstances we always encourage you to contact your private physician who remains a resource for coordinating your care. When calling for follow-up care, please make the office aware that this follow-up is from your recent emergency room visit. If for any reason you are refused follow-up, please contact the [facility] emergency department at and asked to speak to the emergency department charge nurse. - My Orders Last 24 Hours: My Active Orders 10/20/18 20:27 CULTURE URINE [RM] Stat UA W/MICROSCOPIC [URIN] Stat - Assessment/Plan Last 24 Hours: My Active Orders 10/20/18 20:27 CULTURE URINE [RM] Stat UA W/MICROSCOPIC [URIN] Stat
[2018-10-20 21:16] VITALS: BP 128/76
== END 2018-10-20 21:13 | disposition home or self-care (01) ==
LOC: MW.ED 20:13
DX: N39.0 Urinary tract infection, site not specified (principal); F17.210 Nicotine dependence, cigarettes, uncomplicated; Z88.2 Allergy status to sulfonamides; Z88.1 Allergy status to other antibiotic agents
CPT/HCPCS: 81001; 81025; 87086; 87088; 87186; 99283

== ENCOUNTER 2019-12-26 21:13 | Observation (INO) | payer MEDICAID ==
[2019-12-26] MEDS ORDERED: Lactated Ringers 1,000 ML IV ONE (22:23)
[2019-12-26] MEDS ORDERED: Sodium Chloride 0.9% 2.5 ML Syringe FLUSH PRN (22:23)
[2019-12-26] MEDS ORDERED: Sodium Chloride 0.9% 10 ML Syringe FLUSH PRN (22:23)
[2019-12-26] MEDS ORDERED: Sodium Chloride 0.9% 10 ML SDV IV PRN (22:23)
[2019-12-26] MEDS ORDERED: Terbutaline 1 MG/ML SDV SUBCUT ONE (22:23)
[2019-12-27] MEDS ORDERED: Water For Irrigation,Sterile 1,000 ML Container IRR PRN (00:14)
[2019-12-27] MEDS ORDERED: Lactated Ringers 1,000 ML IV SCH (00:15)
[2019-12-27] MEDS ORDERED: NIFEdipine 30 MG Tab.ER PO ONE (08:11)
[2019-12-27 08:25] VITALS: BP 114/67
== END 2019-12-27 08:30 | disposition home or self-care (01) ==
LOC: MW.OB 21:13 → MW.OBCHECK 21:13 → MW.OB 12-27 00:14
PROVIDERS: ADMIT Obstetrics & Gynecology; ATTEND Obstetrics & Gynecology
DX: O09.219 Supervision of pregnancy with history of pre-term labor, unspecified trimester (principal); Z20.828 Contact with and (suspected) exposure to other viral communicable diseases; Z3A.34 34 weeks gestation of pregnancy
CPT/HCPCS: 59025; 87635; 96372; A9270; G0378; J3105; J7120; U0002

== ENCOUNTER 2020-01-25 04:52 | Inpatient (IN) | payer MEDICAID ==
[2020-01-25] MEDS ORDERED: Ondansetron 4 MG/2 ML SDV IVPUSH PRN (04:58)
[2020-01-25] MEDS ORDERED: Carboprost Tromethamine 250 MCG/1 ML Amp IM PRN (04:58)
[2020-01-25] MEDS ORDERED: Methylergonovine 0.2 MG/1 ML Amp IM PRN (04:58)
[2020-01-25] MEDS ORDERED: Sodium Chloride 0.9% 10 ML SDV IV PRN (04:58)
[2020-01-25] MEDS ORDERED: Terbutaline 1 MG/ML SDV SUBCUT PRN (04:58)
[2020-01-25] MEDS ORDERED: Butorphanol 1 MG/ML SDV IVPUSH PRN (04:58)
[2020-01-25] MEDS ORDERED: Sodium Chloride 0.9% 2.5 ML Syringe FLUSH PRN (04:58)
[2020-01-25] MEDS ORDERED: Misoprostol 200 MCG Tab PO PRN (04:58)
[2020-01-25] MEDS ORDERED: Nalbuphine 10 MG/1 ML Vial IVPUSH PRN (04:58)
[2020-01-25] MEDS ORDERED: Water For Irrigation,Sterile 1,000 ML Container IRR PRN (04:58)
[2020-01-25] MEDS ORDERED: Lidocaine 1% 50 ML MDV INJECT PRN (04:58)
[2020-01-25] MEDS ORDERED: Tranexamic Acid 1,000 MG in Sodium Chloride 0.9% 100 ML IV PRN (04:58)
[2020-01-25] MEDS ORDERED: Sodium Chloride 0.9% 10 ML Syringe FLUSH PRN (04:58)
[2020-01-25] MEDS ORDERED: Oxytocin/0.9 % Sodium Chloride 30 UNIT/500 ML BAG IV SCH ×2 (05:00)
--- NOTE | 2020-01-25 07:42 | PCM.PREANE ---
Preanesthetic Assessment - Anesthesia/Transfusion/Family Hx Anesthesia History: Prior Anesthesia Without Reaction Family History of Anesthesia Reaction: No Transfusion History: No Prior Transfusion(s) - Review of Systems General: No Symptoms Pulmonary: No Symptoms Cardiovascular: No Symptoms Gastrointestinal: No Symptoms Neurological: No Symptoms Other: Reports: None - Physical Assessment NPO Status Date: 01/25/20 NPO Status Time: 06:00 Height: 1.65 m Weight: 62.142 kg ASA Class: 2 Airway Class: Mallampati = 2 Dentition: Reports: Normal Dentition Thyro-Mental Finger Breadths: 3 Mouth Opening Finger Breadths: 3 ROM/Head Extension: Full Lungs: Clear to Auscultation, Normal Respiratory Effort Cardiovascular: Regular Rate, Regular Rhythm - Lab Values: Laboratory Last Values WBC 6.63 K/uL (4.0-11.0) 01/25/20 05:52 RBC 3.89 M/uL (4.30-5.90) L 01/25/20 05:52 Hgb 10.8 g/dL (12.0-16.0) L 01/25/20 05:52 Hct 33.6 % (36.0-46.0) L 01/25/20 05:52 MCV 86.4 fL (80.0-98.0) 01/25/20 05:52 MCH 27.8 pg (27.0-32.0) 01/25/20 05:52 MCHC 32.1 g/dL (31.0-37.0) 01/25/20 05:52 RDW Std Deviation 41.6 fl (28.0-62.0) 01/25/20 05:52 RDW Coeff of Barber 13 % (11.0-15.0) 01/25/20 05:52 Plt Count 105 K/uL (150-400) L 01/25/20 05:52 MPV 13.80 fL (7.40-12.00) H 01/25/20 05:52 Nucleated RBC % 0.0 /100WBC 01/25/20 05:52 Nucleated RBCs # 0 K/uL 01/25/20 05:52 Blood Type B POSITIVE 01/25/20 05:52 Antibody Screen NEGATIVE 01/25/20 05:52 - Allergies Allergies/Adverse Reactions: Allergies Allergy/AdvReac Type Severity Reaction Status Date / Time Cephalosporins Allergy Intermediate Hives Verified 01/18/20 18:11 Sulfa (Sulfonamide Allergy Intermediate Hives Verified 01/16/20 14:00 Antibiotics) - Acknowledgements Anesthesia Type Planned: Epidural (The patient understands and accepts the anesthetic risks and benefits. She agrees to proceed. Consent signed. ) Pt an Appropriate Candidate for the Planned Anesthesia: Yes Alternatives and Risks of Anesthesia Discussed w Pt/Guardian: Yes Pt/Guardian Understands and Agrees with Anesthesia Plan: Yes PreAnesthesia Questionnaire - Past Health History Medical/Surgical History: Denies Medical/Surgical History HEENT History: Reports: Otitis Media, Other (See Below) Other HEENT History: tonsilitis, every once and a while. 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 , Other (See Below) Other OB/BYN History: hx labor Musculoskeletal History: Reports: None Neurological History: Reports: None Psychiatric History: Reports: Anxiety, Depression Endocrine/Metabolic History: Reports: None Hematologic History: Reports: Idiopathic Thrombocytopenia, Other (See Below) Other Hematologic History: low platelets during Immunologic History: Reports: None Oncologic (Cancer) History: Reports: None Dermatologic History: Reports: None - Infectious Disease History Infectious Disease History: Reports: Chicken Pox - Past Surgical History Head Surgeries/Procedures: Reports: None HEENT Surgical History: Reports: None Respiratory Surgical History: Reports: None GI Surgical History: Reports: Appendectomy, Other (See Below) Other GI Surgeries/Procedures: appendix removed age 8 yr. Female Surgical History: Reports: None Musculoskeletal Surgical History: Reports: None - SUBSTANCE USE Tobacco Use Status *Q: Former Tobacco User Tobacco Use Within Last Twelve Months: Cigarettes Second Hand Smoke Exposure: No Recreational Drug Use History: No - HOME MEDS Home Medications: Home Meds Sertraline [Zoloft] 100 mg PO BEDTIME 12/26/19 [History] Vits #93/Iron Fum/FA [ Formula Tablet] 1 each PO DAILY 01/16/20 [History] - CURRENT (IN HOUSE) MEDS Current Meds: Current Medications Butorphanol Tartrate (Stadol) 1 mg IVPUSH Q1H PRN PRN Reason: Pain Carboprost Tromethamine (Hemabate Ds) 250 mcg IM ASDIRECTED PRN PRN Reason: Post Hemorrhage Oxytocin/Sodium Chloride (Oxytocin 30 Unit/500 Ml-Ns) 30 unit in 500 mls @ 2 mls/hr IV TITRATE MICHAEL; Protocol Lactated Ringer's (Ringers, Lactated) 1,000 mls @ 150 mls/hr IV ASDIRECTED MICHAEL Oxytocin/Sodium Chloride (Oxytocin 30 Unit/500 Ml-Ns) 30 unit in 500 mls @ 999 mls/hr IV TITRATE MICHAEL Tranexamic Acid 1,000 mg/ (Sodium Chloride) 110 mls @ 660 mls/hr IV ONETIME PRN PRN Reason: Bleeding Lidocaine HCl (Xylocaine 1%) 50 ml INJECT ONETIME PRN PRN Reason: Laceration repair Methylergonovine Maleate (Methergine) 0.2 mg IM ASDIRECTED PRN PRN Reason: Post Hemorrhage Misoprostol (Cytotec) 200 mcg PO ONETIME PRN PRN Reason: Post Hemorrhage Nalbuphine HCl (Nubain) 10 mg IVPUSH Q1H PRN PRN Reason: Pain (severe 7-10) Ondansetron HCl (Zofran) 4 mg IVPUSH Q4H PRN PRN Reason: Nausea/Vomiting Sodium Chloride (Saline Flush) 10 ml FLUSH ASDIRECTED PRN PRN Reason: Keep Vein Open Sodium Chloride (Saline Flush) 2.5 ml FLUSH ASDIRECTED PRN PRN Reason: Keep Vein Open Sodium Chloride (Normal Saline) 10 ml IV ASDIRECTED PRN PRN Reason: IV Use Sterile Water (Sterile Water For Irrigation) 1,000 ml IRR ASDIRECTED PRN PRN Reason: delivery Terbutaline Sulfate (Brethine) 0.25 mg SUBCUT ASDIRECTED PRN PRN Reason: Tacysystole
[2020-01-25] MEDS: Lactated Ringers 1,000 ML IV SCH ×2 (07:45→08:54)
--- NOTE | 2020-01-25 07:54 | PCM.LDHP ---
L&D History of Present Illness - General Date of Service: 01/25/20 Admit Problem/Dx: Patient Status Order with Admit Dx/Problem 01/25/20 04:58 Patient Status [ADT] Routine Admission Diagnosis/Problem Admission Diagnosis/Problem 01/25/20 07:52 at 39 0/7 weeks (EDIL: 02/01/20) presenting to L&D for elective IOL; B+, Rubella immune, GBS negative; SVE per nurse 5-6 cm/ 90%/-2, soft, mid Source of Information: Patient History Limitations: Reports: No Limitations - History of Present Illness Associated Symptoms: Reports: N - Related Data Allergies/Adverse Reactions: Allergies Allergy/AdvReac Type Severity Reaction Status Date / Time Cephalosporins Allergy Intermediate Hives Verified 01/18/20 18:11 Sulfa (Sulfonamide Allergy Intermediate Hives Verified 01/16/20 14:00 Antibiotics) Home Medications: Home Meds Sertraline [Zoloft] 100 mg PO BEDTIME 12/26/19 [History] Vits #93/Iron Fum/FA [ Formula Tablet] 1 each PO DAILY 01/16/20 [History] Past Medical History - Past Health History Medical/Surgical History: Denies Medical/Surgical History HEENT History: Reports: Otitis Media, Other (See Below) Other HEENT History: tonsilitis, every once and a while. 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 , Other (See Below) Other OB/BYN History: hx labor Musculoskeletal History: Reports: None Neurological History: Reports: None Psychiatric History: Reports: Anxiety, Depression Endocrine/Metabolic History: Reports: None Hematologic History: Reports: Idiopathic Thrombocytopenia, Other (See Below) Other Hematologic History: low platelets during Immunologic History: Reports: None Oncologic (Cancer) History: Reports: None Dermatologic History: Reports: None - Infectious Disease History Infectious Disease History: Reports: Chicken Pox - Past Surgical History Head Surgeries/Procedures: Reports: None HEENT Surgical History: Reports: None Respiratory Surgical History: Reports: None GI Surgical History: Reports: Appendectomy, Other (See Below) Other GI Surgeries/Procedures: appendix removed age 8 yr. Female Surgical History: Reports: None Musculoskeletal Surgical History: Reports: None Social & Family History - Family History Family Medical History: Noncontributory Cardiac: Reports: Hypertension, [place] Other Cardiac Family History: mother OBGYN: Reports: Musculoskeletal: Reports: Arthritis Neurological: Reports: TIA Other Neurological Family History: mother Psychiatric: Reports: Depression Endocrine/Metabolic: Reports: Diabetes, type II Other Endocrine/Metabolic Family History: aunt and uncle Oncologic: Reports: Metastatic, Renal, Skin, Uterine - Tobacco Use Tobacco Use Status *Q: Former Tobacco User Used Tobacco, but Quit: Yes Month/Year Tobacco Last Used: 03/2019 Second Hand Smoke Exposure: No - Caffeine Use Caffeine Use: Reports: None Caffeine Use Comment: one-half cup coffee daily, 8 oz red bull "here and there" - Recreational Drug Use Recreational Drug Use: No H&P Review of Systems - Review of Systems: Review Of Systems: See Below General: Reports: No Symptoms HEENT: Reports: No Symptoms Pulmonary: Reports: No Symptoms Cardiovascular: Reports: No Symptoms Gastrointestinal: Reports: No Symptoms Genitourinary: Reports: No Symptoms Musculoskeletal: Reports: No Symptoms Skin: Reports: No Symptoms Psychiatric: Reports: No Symptoms Neurological: Reports: No Symptoms Hematologic/Lymphatic: Reports: No Symptoms Immunologic: Reports: No Symptoms L&D Exam - Exam Exam: See Below - Vital Signs Weight: 137 lb - OB Specific Movement: Active Heart Tones: Present Heart Rate (FHR) Variability: Moderate (6-25 bmp) Presentation: Vertex - Mendoza Score Mendoza Score Cervix Position: Midposition Mendoza Score Consistency: Soft Mendoza Score Dilation: > 5 cm Mendoza Score Infant's Station: -2 - Exam General: Alert, Oriented Lungs: Normal Respiratory Effort Cardiovascular: Regular Rate, Regular Rhythm GI/Abdominal Exam: Soft, Non-Tender Rectal Exam: Deferred Genitourinary: Deferred Back Exam: Normal Inspection, Full Range of Motion Extremities: Normal Inspection, Normal Range of Motion, Non-Tender, Normal Capil eugenio Refill Skin: Warm, Dry, Intact Neurological: Normal Speech, Normal Tone, Sensation Intact Psychiatric: Alert, Normal Affect, Normal Mood - Patient Data Lab Results Last 24 hrs: Laboratory Results - last 24 hr 01/25/20 01/25/20 Range/Units 05:52 05:52 WBC 6.63 (4.0-11.0) K/uL RBC 3.89 L (4.30-5.90) M/uL Hgb 10.8 L (12.0-16.0) g/dL Hct 33.6 L (36.0-46.0) % MCV 86.4 (80.0-98.0) fL MCH 27.8 (27.0-32.0) pg MCHC 32.1 (31.0-37.0) g/dL RDW Std Deviation 41.6 (28.0-62.0) fl RDW Coeff of Barber 13 (11.0-15.0) % Plt Count 105 L (150-400) K/uL MPV 13.80 H (7.40-12.00) fL Nucleated RBC % 0.0 /100WBC Nucleated RBCs # 0 K/uL Blood Type B POSITIVE Antibody Screen NEGATIVE Result Diagrams: 01/25/20 05:52 - Problem List (1) Supervision of normal IUP (intrauterine ) in multigravida SNOMED Code(s): 522167983, 102146243, 149417171 ICD Code: Z34.80 - ENCOUNTER FOR SUPRVSN OF NORMAL , UNSP TRIMESTER Status: Acute Current Visit: Yes Qualifiers: Trimester: third trimester Qualified Code(s): Z34.83 - Encounter for supervision of other normal , third trimester Problem List Initiated/Reviewed/Updated: Yes Orders Last 24hrs: Active Orders 24 hr Category Date Time Status Patient Status [ADT] Routine ADT 01/25/20 04:58 Active Bedrest Bathroom Privileges [RC] ASDIRECTED Care 01/25/20 04:58 Active Communication Order [RC] ASDIRECTED Care 01/25/20 04:58 Active Communication Order [RC] ASDIRECTED Care 01/25/20 04:58 Active Communication Order [RC] ASDIRECTED Care 01/25/20 04:58 Active Heart Tones [RC] CONTINUOUS Care 01/25/20 04:58 Active Non Stress Test [RC] PER UNIT ROUTINE Care 01/25/20 04:58 Active May Shower [RC] ASDIRECTED Care 01/25/20 04:58 Active Notify Provider [RC] PRN Care 01/25/20 04:58 Active Notify Provider [RC] PRN Care 01/25/20 04:58 Active Notify Provider [RC] PRN Care 01/25/20 04:58 Active Notify Provider [RC] STAT Care 01/25/20 04:58 Active Oxygen Therapy [RC] ASDIRECTED Care 01/25/20 04:58 Active Up ad Lizett [RC] ASDIRECTED Care 01/25/20 04:58 Active Vaginal Exam [RC] PRN Care 01/25/20 04:58 Active Vaginal Exam [RC] PRN Care 01/25/20 04:58 Active Vital Signs [RC] PER UNIT ROUTINE Care 01/25/20 04:58 Active Vital Signs [RC] PER UNIT ROUTINE Care 01/25/20 04:58 Active RPR (SYPHILIS SERO) W/ RFLX [REF] Routine Lab 01/25/20 05:52 Received Butorphanol [Stadol] Med 01/25/20 04:58 Active 1 mg IVPUSH Q1H PRN Carboprost Tromethamine [Hemabate DS] Med 01/25/20 04:58 Active 250 mcg IM ASDIRECTED PRN Lactated Ringers [Ringers, Lactated] 1,000 ml Med 01/25/20 05:00 Active IV ASDIRECTED Lidocaine 1% [Xylocaine 1%] Med 01/25/20 04:58 Active 50 ml INJECT ONETIME PRN Methylergonovine [Methergine] Med 01/25/20 04:58 Active 0.2 mg IM ASDIRECTED PRN Nalbuphine [Nubain] Med 01/25/20 04:58 Active 10 mg IVPUSH Q1H PRN Ondansetron [Zofran] Med 01/25/20 04:58 Active 4 mg IVPUSH Q4H PRN Oxytocin/0.9 % Sodium Chloride [Oxytocin 30 Unit/500 ML Med 01/25/20 05:00 Active -NS] 30 unit in 500 ml IV TITRATE Oxytocin/0.9 % Sodium Chloride [Oxytocin 30 Unit/500 ML Med 01/25/20 05:00 Active -NS] 30 unit in 500 ml IV TITRATE Sodium Chloride 0.9% [Normal Saline] Med 01/25/20 04:58 Active 10 ml IV ASDIRECTED PRN Sodium Chloride 0.9% [Saline Flush] Med 01/25/20 04:58 Active 10 ml FLUSH ASDIRECTED PRN Sodium Chloride 0.9% [Saline Flush] Med 01/25/20 04:58 Active 2.5 ml FLUSH ASDIRECTED PRN Terbutaline [Brethine] Med 01/25/20 04:58 Active 0.25 mg SUBCUT ASDIRECTED PRN Tranexamic Acid [Cyklokapron] 1,000 mg Med 01/25/20 04:58 Active Sodium Chloride 0.9% [Normal Saline] 100 ml IV ONETIME Water For Irrigation,Sterile [Sterile Water for Med 01/25/20 04:58 Active Irrigation] 1,000 ml IRR ASDIRECTED PRN miSOPROStoL [Cytotec] Med 01/25/20 04:58 Active 200 mcg PO ONETIME PRN Scalp Electrode [WOMSER] Per Unit Routine Oth 01/25/20 04:58 Ordered Medication Administration Instruction [OM.PC] Q3H Oth 01/25/20 05:00 Ordered Peripheral IV Insertion Adult [OM.PC] Routine Oth 01/25/20 04:58 Ordered Resuscitation Status Routine Resus Stat 01/25/20 04:58 Ordered Medication Orders Butorphanol Tartrate (Stadol) 1 mg IVPUSH Q1H PRN PRN Reason: Pain Carboprost Tromethamine (Hemabate Ds) 250 mcg IM ASDIRECTED PRN PRN Reason: Post Hemorrhage Oxytocin/Sodium Chloride (Oxytocin 30 Unit/500 Ml-Ns) 30 unit in 500 mls @ 2 mls/hr IV TITRATE MICHAEL; Protocol Lactated Ringer's (Ringers, Lactated) 1,000 mls @ 150 mls/hr IV ASDIRECTED MICHAEL Oxytocin/Sodium Chloride (Oxytocin 30 Unit/500 Ml-Ns) 30 unit in 500 mls @ 999 mls/hr IV TITRATE MICHAEL Tranexamic Acid 1,000 mg/ (Sodium Chloride) 110 mls @ 660 mls/hr IV ONETIME PRN PRN Reason: Bleeding Lidocaine HCl (Xylocaine 1%) 50 ml INJECT ONETIME PRN PRN Reason: Laceration repair Methylergonovine Maleate (Methergine) 0.2 mg IM ASDIRECTED PRN PRN Reason: Post Hemorrhage Misoprostol (Cytotec) 200 mcg PO ONETIME PRN PRN Reason: Post Hemorrhage Nalbuphine HCl (Nubain) 10 mg IVPUSH Q1H PRN PRN Reason: Pain (severe 7-10) Ondansetron HCl (Zofran) 4 mg IVPUSH Q4H PRN PRN Reason: Nausea/Vomiting Sodium Chloride (Saline Flush) 10 ml FLUSH ASDIRECTED PRN PRN Reason: Keep Vein Open Sodium Chloride (Saline Flush) 2.5 ml FLUSH ASDIRECTED PRN PRN Reason: Keep Vein Open Sodium Chloride (Normal Saline) 10 ml IV ASDIRECTED PRN PRN Reason: IV Use Sterile Water (Sterile Water For Irrigation) 1,000 ml IRR ASDIRECTED PRN PRN Reason: delivery Terbutaline Sulfate (Brethine) 0.25 mg SUBCUT ASDIRECTED PRN PRN Reason: Tacysystole Assessment/Plan Comment:: Admit A: at 39 0/7 weeks (EDIL: 02/01/20) presenting to L&D for elective IOL; B+, Rubella immune, GBS negative; SVE per nurse 5-6 cm/ 90%/-2, soft, mid-position P: Anticipate ; epidural PRN; Dr. Zamora updated.
[2020-01-25] MEDS ORDERED: Ropivacaine HCl/PF 100 ML ONE (07:59)
--- NOTE | 2020-01-25 08:51 | PCM.SN.2 ---
- Free Text/Narrative Note: Consent signed. Time out 805. Epidural done with a sterile technique. patient in sitting position. Back prepped with chlorhexidine and draped. 1% lidocaine 3 ml given . 17 gauge touhy ijeoma with air at 4.5 cm, epidural catheter threaded easily to 15 cm without paresthesias or pain. aspiration negative for csf and heme. 08 test dose with 1.5% lidocaine with epi 3 ml negative. There was no paresthesias or pain with injection. 08 bolus dose of 1.5% lidocaine with epinephrine 2 ml given. 0833 0.2% Ropivacaine 6 ml bolus given. One attempt. The patient tolerated the procedure well, and was able to communicate throughout the entire procedure. Time [id number]
[2020-01-25] MEDS ORDERED: oxyCODONE 5 MG Tab PO PRN (14:17)
[2020-01-25] MEDS ORDERED: Docusate Sodium 100 MG Cap PO PRN (14:17)
[2020-01-25] MEDS ORDERED: Benzocaine/Menthol 20%-0.5% Spray 78 GM Cannister TOP PRN (14:17)
[2020-01-25] MEDS ORDERED: Lanolin 100% Cream 7 GM Tube TOP PRN (14:17)
[2020-01-25] MEDS ORDERED: Bisacodyl 10 MG Supp RECTAL PRN (14:17)
[2020-01-25] MEDS ORDERED: Witch Hazel Medicated Pads 40/Jar TOP PRN (14:17)
[2020-01-25] MEDS ORDERED: Acetaminophen 500 MG Tab PO PRN (14:17)
[2020-01-25] MEDS ORDERED: Ibuprofen 400 MG Tab PO PRN (14:17)
[2020-01-25] MEDS: Ibuprofen 800 MG Tab PO PRN ×2 (16:26→22:19)
--- NOTE | 2020-01-25 16:27 | PCM.DEL ---
L & D Note - General Info Date of Service: 01/25/20 Mother's Due Date: 02/01/20 - Delivery Note Labor: Induced by ARM Delivery Outcome: Livebirth Delivery Mode: Spontaneous Presentation: Left Occiput Anterior (ISAAK) Nuchal Cord: None Anesthesia Type: Epidural Episiotomy Type: None Laceration: None Placenta: Intact, Spontaneous Cord: 3 Vessels Estimated Blood Loss: 100 Resuscitation Needed: No [place]: Stimulated, Warmed, [place] Used Score 1 min: 8 Score 5 min: 8 Second Stage Interventions: Reports: Encouragement Given, Pushing Effectively, Pushing, Stirrups/Leg Supports Delivery Comments (Free Text/Narrative):: Jazmyne is a 24 yo at 39+0 weeks gestation (EDIL 02/01/2020) that presents today for elective IOL with subsequent of term, viable NBF. B pos, RI, GBS neg. Adequate epidural analgesia. Cephalic presentation. head delivered JUANCHO spontaneously, body following shortly after with the next push. NBF placed to maternal abdomen, warmed, dried, stimulated with spontaneous cries. Umbilical cord left intact for ~2 min, clamped x 2, cut by FOB. Pitocin bolus commenced, gentle cord traction applied for active third stage management. Placenta birthed ~10 min S/P NBF, intact, [place], 3VC. Perineum inspected, intact. Uterus firm @U. No vaginal bleeding noted. EBL 100 ml. Induction Criteria - Induction Gestational Age >/= 39 wks: Yes Medical Indication: Elective Estimated Pelvis: Reports: Adequate Reassuring Monitoring Strip: Yes Absence of Tachy Systole: No - Augmentation Estimated Pelvis: Reports: Adequate - General Info Date of Service: 01/25/20 Admission Dx/Problem (Free Text): Patient Status Order with Admit Dx/Problem 01/25/20 04:58 Patient Status [ADT] Routine Admission Diagnosis/Problem Admission Diagnosis/Problem 01/25/20 07:52 at 39 0/7 weeks (EDIL: 02/01/20) presenting to L&D for elective IOL; B+, Rubella immune, GBS negative; SVE per nurse 5-6 cm/ 90%/-2, soft, mid Functional Status: Reports: Pain Controlled - Review of Systems General: Reports: No Symptoms HEENT: Reports: No Symptoms Pulmonary: Reports: No Symptoms Cardiovascular: Reports: No Symptoms Gastrointestinal: Reports: No Symptoms Genitourinary: Reports: No Symptoms Musculoskeletal: Reports: No Symptoms Skin: Reports: No Symptoms Neurological: Reports: No Symptoms Psychiatric: Reports: No Symptoms - Patient Data Vitals - Most Recent: Hemodynamically stable, afebrile. See flowsheet. Weight - Most Recent: 137 lb Lab Results Last 24 Hours: Laboratory Results - last 24 hr 01/25/20 01/25/20 Range/Units 05:52 05:52 WBC 6.63 (4.0-11.0) K/uL RBC 3.89 L (4.30-5.90) M/uL Hgb 10.8 L (12.0-16.0) g/dL Hct 33.6 L (36.0-46.0) % MCV 86.4 (80.0-98.0) fL MCH 27.8 (27.0-32.0) pg MCHC 32.1 (31.0-37.0) g/dL RDW Std Deviation 41.6 (28.0-62.0) fl RDW Coeff of Barber 13 (11.0-15.0) % Plt Count 105 L (150-400) K/uL MPV 13.80 H (7.40-12.00) fL Nucleated RBC % 0.0 /100WBC Nucleated RBCs # 0 K/uL Blood Type B POSITIVE Antibody Screen NEGATIVE Med Orders - Current: Current Medications Acetaminophen (Tylenol Extra Strength) 500 mg PO Q4H PRN PRN Reason: Pain Acetaminophen (Tylenol Extra Strength) 1,000 mg PO Q4H PRN PRN Reason: Pain Benzocaine/Menthol (Dermoplast Pain Relief 20%-0.5% [place]) 78 gm TOP ASDIRECTED PRN PRN Reason: Perineal Comfort Measure Bisacodyl (Dulcolax) 10 mg RECTAL ONETIME PRN PRN Reason: Constipation Docusate Sodium (Colace) 100 mg PO BID PRN PRN Reason: Constipation Emollient Ointment (Lansinoh Hpa) 0 gm TOP ASDIRECTED PRN PRN Reason: Sore Nipples Ibuprofen (Motrin) 400 mg PO Q4H PRN PRN Reason: Pain Ibuprofen (Motrin) 800 mg PO Q6H PRN PRN Reason: Pain Oxycodone HCl (Oxycodone) 5 mg PO Q2H PRN PRN Reason: Pain Witch Nancy (Tucks) 1 pad TOP ASDIRECTED PRN PRN Reason: comfort care Discontinued Medications Butorphanol Tartrate (Stadol) 1 mg IVPUSH Q1H PRN PRN Reason: Pain Carboprost Tromethamine (Hemabate Ds) 250 mcg IM ASDIRECTED PRN PRN Reason: Post Hemorrhage Oxytocin/Sodium Chloride (Oxytocin 30 Unit/500 Ml-Ns) 30 unit in 500 mls @ 2 mls/hr IV TITRATE MICHAEL; Protocol Lactated Ringer's (Ringers, Lactated) 1,000 mls @ 150 mls/hr IV ASDIRECTED MICHAEL Last Admin: 01/25/20 08:54 Dose: 150 mls/hr Documented by: Oxytocin/Sodium Chloride (Oxytocin 30 Unit/500 Ml-Ns) 30 unit in 500 mls @ 999 mls/hr IV TITRATE MICHAEL Last Admin: 01/25/20 13:19 Dose: 999 mls/hr Documented by: Tranexamic Acid 1,000 mg/ (Sodium Chloride) 110 mls @ 660 mls/hr IV ONETIME PRN PRN Reason: Bleeding Ropivacaine (Naropin 0.2%) Confirm Administered Dose 100 mls @ as directed .[facility] .[facility] [[email or web address]MED ONE Stop: 01/25/20 08:00 Lidocaine HCl (Xylocaine 1%) 50 ml INJECT ONETIME PRN PRN Reason: Laceration repair Methylergonovine Maleate (Methergine) 0.2 mg IM ASDIRECTED PRN PRN Reason: Post Hemorrhage Misoprostol (Cytotec) 200 mcg PO ONETIME PRN PRN Reason: Post Hemorrhage Nalbuphine HCl (Nubain) 10 mg IVPUSH Q1H PRN PRN Reason: Pain (severe 7-10) Ondansetron HCl (Zofran) 4 mg IVPUSH Q4H PRN PRN Reason: Nausea/Vomiting Sodium Chloride (Saline Flush) 10 ml FLUSH ASDIRECTED PRN PRN Reason: Keep Vein Open Sodium Chloride (Saline Flush) 2.5 ml FLUSH ASDIRECTED PRN PRN Reason: Keep Vein Open Sodium Chloride (Normal Saline) 10 ml IV ASDIRECTED PRN PRN Reason: IV Use Sterile Water (Sterile Water For Irrigation) 1,000 ml IRR ASDIRECTED PRN PRN Reason: delivery Terbutaline Sulfate (Brethine) 0.25 mg SUBCUT ASDIRECTED PRN PRN Reason: Tacysystole - Exam General: Alert, Oriented, Cooperative, No Acute Distress HEENT: Pupils Equal, Pupils Reactive, Mucous Membr. Moist/[place] Neck: Supple Lungs: Clear to Auscultation, Normal Respiratory Effort Cardiovascular: Regular Rate, Regular Rhythm GI/Abdominal Exam: Normal Bowel Sounds, Soft, Non-Tender, No Organomegaly, No Distention (Female) Exam: Normal External Exam, Enlarged Uterus ( uterus, firm @U) Back Exam: Normal Inspection, Full Range of Motion Extremities: Normal Inspection, Normal Range of Motion, Non-Tender, No Pedal Edema, Normal Capillary Refill Skin: Warm, Dry, Intact Neurological: No New Focal Deficit (BLE epidural analgesia) Psy/Mental Status: Alert, Normal Affect, Normal Mood - Problem List & Annotations (1) (normal spontaneous vaginal delivery) SNOMED Code(s): 80781411, 709931191 Code(s): O80 - ENCOUNTER FOR FULL-TERM UNCOMPLICATED DELIVERY Status: Acute Priority: High Current Visit: Yes (2) Lactating mother SNOMED Code(s): 781801264, 734798546 Code(s): Z39.1 - ENCOUNTER FOR CARE AND EXAMINATION OF LACTATING MOTHER Status: Acute Priority: High Current Visit: Yes - Problem List Review Problem List Initiated/Reviewed/Updated: Yes - My Orders Last 24 Hours: My Active Orders 01/25/20 Lunch Regular Diet [DIET] 01/25/20 14:17 Patient Status [ADT] Routine May Shower [RC] ASDIRECTED Up ad Lizett [RC] ASDIRECTED Vital Signs [RC] PER UNIT ROUTINE Acetaminophen [Tylenol Extra Strength] 1,000 mg PO Q4H PRN Acetaminophen [Tylenol Extra Strength] 500 mg PO Q4H PRN Benzocaine/Menthol [Dermoplast Pain Relief 20%-0.5% [place]] 78 gm TOP ASDIRECTED PRN Docusate Sodium [Colace] 100 mg PO BID PRN Ibuprofen [Motrin] 400 mg PO Q4H PRN Ibuprofen [Motrin] 800 mg PO Q6H PRN Lanolin [Lansinoh HPA] See Dose Instructions TOP ASDIRECTED PRN bisacodyL [Dulcolax] 10 mg RECTAL ONETIME PRN oxyCODONE 5 mg PO Q2H PRN witch Nancy [Tucks] 1 pad TOP ASDIRECTED PRN Assess Lochia [WOMSER] Per Unit Routine Assess Uterine Involution [WOMSER] Per Unit Routine Peripheral IV Discontinue [OM.PC] Routine Resuscitation Status Routine 01/25/20 14:18 Cooling Warming Measures [RC] ASDIRECTED Ice Therapy [OM.PC] Per Unit Routine Perineal Care [OM.PC] Per Unit Routine Sitz Bath [OM.PC] Per Unit Routine - Plan Plan:: Admit inpatient to unit S/P uncomplicated of term, viable NBF. Provide support as needed. D/C epidural analgesia. Ambulate within 6 [address] See new orders. Dr. Zamora notified and agreeable with POC.
[2020-01-25] MEDS: Acetaminophen 500 MG Tab PO PRN (18:13)
[2020-01-26] MEDS: Acetaminophen 500 MG Tab PO PRN ×3 (01:33→14:18)
--- NOTE | 2020-01-26 09:08 | PCM.DCSUM1 ---
Discharge Summary - Hospital Course Free Text/Narrative:: Discharge home with ; follow up in the clinic in 6 weeks for routine visit. Diagnosis: Stroke: No Modified [place] Scale: No Symptoms at All Modified [place] Scale Score: 0 - Discharge Data Discharge Date: 01/26/20 Discharge Disposition: Home, Self-Care 01 Condition: Good - Referral to Home Health Primary Care Physician: Joon Rogel MD - Discharge Diagnosis/Problem(s) (1) Supervision of normal IUP (intrauterine ) in multigravida SNOMED Code(s): 976842162, [id number], [id number] ICD Code: Z34.80 - ENCOUNTER FOR SUPRVSN OF NORMAL , UNSP TRIMESTER Status: Acute Priority: High Current Visit: Yes Qualifiers: Trimester: third trimester Qualified Code(s): Z34.83 - Encounter for supervision of other normal , third trimester - Patient Instructions Diet: Usual Diet as Tolerated, Regular Diet as Tolerated, Drink 8-10+ Glasses/Day Activity: As Tolerated, No Strenuous Activities, Rest and Relax Today Driving: May Drive Today Showering/Bathing: May Shower - Discharge Plan *PRESCRIPTION DRUG MONITORING PROGRAM REVIEWED*: Not Applicable *COPY OF PRESCRIPTION DRUG MONITORING REPORT IN PATIENT MARE: Not Applicable Prescriptions/Med Rec: Ibuprofen [Motrin] 800 mg PO Q6H PRN #90 tablet PRN Reason: Pain Home Medications: Home Meds Sertraline [Zoloft] 100 mg PO BEDTIME 12/26/19 [History] Vits #93/Iron Fum/FA [ Formula Tablet] 1 each PO DAILY 01/16/20 [History] Ibuprofen [Motrin] 800 mg PO Q6H PRN #90 tablet 01/26/20 [Rx] Oxygen Therapy Mode: Room Air Referrals: [facility] [Outside] Lauren Massey CNM [Mid-] - 03/07/20 1:00 pm - Discharge Summary/Plan Comment DC Time >30 min.: Yes - General Info Date of Service: 01/26/20 Admission Dx/Problem (Free Text: Patient Status Order with Admit Dx/Problem 01/25/20 04:58 Patient Status [ADT] Routine Admission Diagnosis/Problem Admission Diagnosis/Problem 01/25/20 07:52 at 39 0/7 weeks (EDIL: 02/01/20) presenting to L&D for elective IOL; B+, Rubella immune, GBS negative; SVE per nurse 5-6 cm/ 90%/-2, soft, mid Functional Status: Reports: Pain Controlled - Review of Systems General: Reports: No Symptoms HEENT: Reports: No Symptoms Pulmonary: Reports: No Symptoms Cardiovascular: Reports: No Symptoms Gastrointestinal: Reports: No Symptoms Genitourinary: Reports: No Symptoms Musculoskeletal: Reports: No Symptoms Skin: Reports: No Symptoms Neurological: Reports: No Symptoms Psychiatric: Reports: No Symptoms - Patient Data Vitals - Most Recent: Last Vital Signs Temp 98 F 01/26/20 07:40 Pulse 50 L 01/26/20 07:40 Resp 16 01/26/20 07:40 BP 135/85 01/26/20 07:40 Pulse Ox 97 01/26/20 07:40 Weight - Most Recent: 137 lb Med Orders - Current: Current Medications Acetaminophen (Tylenol Extra Strength) 500 mg PO Q4H PRN PRN Reason: Pain Acetaminophen (Tylenol Extra Strength) 1,000 mg PO Q4H PRN PRN Reason: Pain Last Admin: 01/26/20 01:33 Dose: 1,000 mg Documented by: Benzocaine/Menthol (Dermoplast Pain Relief 20%-0.5% [place]) 78 gm TOP ASDIRECTED PRN PRN Reason: Perineal Comfort Measure Last Admin: 01/25/20 16:25 Dose: 1 can Documented by: Bisacodyl (Dulcolax) 10 mg RECTAL ONETIME PRN PRN Reason: Constipation Docusate Sodium (Colace) 100 mg PO BID PRN PRN Reason: Constipation Emollient Ointment (Lansinoh Hpa) 0 gm TOP ASDIRECTED PRN PRN Reason: Sore Nipples Last Admin: 01/25/20 16:26 Dose: 1 tube Documented by: Ibuprofen (Motrin) 400 mg PO Q4H PRN PRN Reason: Pain Ibuprofen (Motrin) 800 mg PO Q6H PRN PRN Reason: Pain Last Admin: 01/25/20 22:19 Dose: 800 mg Documented by: Oxycodone HCl (Oxycodone) 5 mg PO Q2H PRN PRN Reason: Pain Witch Nancy (Tucks) 1 pad TOP ASDIRECTED PRN PRN Reason: comfort care Last Admin: 01/25/20 16:25 Dose: 1 tub Documented by: Discontinued Medications Butorphanol Tartrate (Stadol) 1 mg IVPUSH Q1H PRN PRN Reason: Pain Carboprost Tromethamine (Hemabate Ds) 250 mcg IM ASDIRECTED PRN PRN Reason: Post Hemorrhage Oxytocin/Sodium Chloride (Oxytocin 30 Unit/500 Ml-Ns) 30 unit in 500 mls @ 2 mls/hr IV TITRATE [facility]; Protocol Lactated Ringer's (Ringers, Lactated) 1,000 mls @ 150 mls/hr IV ASDIRECTED MICHAEL Last Admin: 01/25/20 08:54 Dose: 150 mls/hr Documented by: Oxytocin/Sodium Chloride (Oxytocin 30 Unit/500 Ml-Ns) 30 unit in 500 mls @ 999 mls/hr IV TITRATE MICHAEL Last Admin: 01/25/20 13:19 Dose: 999 mls/hr Documented by: Tranexamic Acid 1,000 mg/ (Sodium Chloride) 110 mls @ 660 mls/hr IV ONETIME PRN PRN Reason: Bleeding Ropivacaine (Naropin 0.2%) Confirm Administered Dose 100 mls @ as directed .[facility] Stop: 01/25/20 08:00 Lidocaine HCl (Xylocaine 1%) 50 ml INJECT ONETIME PRN PRN Reason: Laceration repair Methylergonovine Maleate (Methergine) 0.2 mg IM ASDIRECTED PRN PRN Reason: Post Hemorrhage Misoprostol (Cytotec) 200 mcg PO ONETIME PRN PRN Reason: Post Hemorrhage Nalbuphine HCl (Nubain) 10 mg IVPUSH Q1H PRN PRN Reason: Pain (severe 7-10) Ondansetron HCl (Zofran) 4 mg IVPUSH Q4H PRN PRN Reason: Nausea/Vomiting Sodium Chloride (Saline Flush) 10 ml FLUSH ASDIRECTED PRN PRN Reason: Keep Vein Open Sodium Chloride (Saline Flush) 2.5 ml FLUSH ASDIRECTED PRN PRN Reason: Keep Vein Open Sodium Chloride (Normal Saline) 10 ml IV ASDIRECTED PRN PRN Reason: IV Use Sterile Water (Sterile Water For Irrigation) 1,000 ml IRR ASDIRECTED PRN PRN Reason: delivery Terbutaline Sulfate (Brethine) 0.25 mg SUBCUT ASDIRECTED PRN PRN Reason: Tacysystole - Exam General: Reports: Alert, Oriented, Cooperative, No Acute Distress Lungs: Reports: Normal Respiratory Effort (Female) Exam: Deferred Rectal (Female) Exam: Deferred Back Exam: Reports: Full Range of Motion Extremities: Normal Inspection, Normal Range of Motion, Non-Tender Neurological: Reports: No New Focal Deficit, Normal Speech, Normal Tone Psy/Mental Status: Reports: Alert, Normal Affect, Normal Mood
[2020-01-26] MEDS: Ibuprofen 800 MG Tab PO PRN (09:43)
--- NOTE | 2020-01-26 09:55 | PCM48HPAN ---
Post Anesthesia Note - EVALUATION WITHIN 48HRS OF ANESTHETIC Vital Signs in Normal Range: Yes Patient Participated in Evaluation: Yes Respiratory Function Stable: Yes Airway Patent: Yes Cardiovascular Function Stable: Yes Hydration Status Stable: Yes Pain Control Satisfactory: Yes Nausea and Vomiting Control Satisfactory: Yes Mental Status Recovered: Yes Vital Signs: Last Vital Signs Temp 36.6 C 01/26/20 07:40 Pulse 50 L 01/26/20 07:40 Resp 16 01/26/20 07:40 BP 135/85 01/26/20 07:40 Pulse Ox 97 01/26/20 07:40 - COMMENTS/OBSERVATIONS Free Text/Narrative:: Sitting up in bed. Denies any complaints except back is a little sore.
[2020-01-26 16:03] VITALS: BP 114/77; PULSE 69
== END 2020-01-26 17:05 | disposition home or self-care (01) | DRG 807 ==
LOC: MW.OBCHECK 04:52 → MW.OB 04:54 → MW.OBCHECK 04:58 → MW.OB 04:58 → OBSVTOIN 13:18 → MW.OB 16:34
PROVIDERS: ADMIT Obstetrics & Gynecology; ATTEND Obstetrics & Gynecology
PROC: 10E0XZZ Delivery of Products of Conception, External Approach (ICD-10-PCS; principal; 2020-01-25)
PROC: 10907ZC Drainage of Amniotic Fluid, Therapeutic from Products of Conception, Via Natural or Artificial Opening (ICD-10-PCS; 2020-01-25)
PROC: 3E0R3BZ Introduction of Anesthetic Agent into Spinal Canal, Percutaneous Approach (ICD-10-PCS; 2020-01-25)
PROC: 00HU33Z Insertion of Infusion Device into Spinal Canal, Percutaneous Approach (ICD-10-PCS; 2020-01-25)
DX: O99.344 Other mental disorders complicating childbirth (principal); Z37.0 Single live birth; F32.9 Major depressive disorder, single episode, unspecified; F41.9 Anxiety disorder, unspecified; Z88.1 Allergy status to other antibiotic agents; Z88.2 Allergy status to sulfonamides; Z3A.39 39 weeks gestation of pregnancy; Z90.49 Acquired absence of other specified parts of digestive tract; Z87.891 Personal history of nicotine dependence
CPT/HCPCS: 01967; 36415; 51702; 59025; 59409; 85027; 86592; 86850; 86900; 86901; A9270-GY; J2590; J2795; J7120

== ENCOUNTER 2024-10-12 11:09 | Emergency (ER) | payer MEDICAID ==
[2024-10-12 11:25] VITALS: BP 107/65; PULSE 83
[2024-10-12] MEDS ORDERED: Sodium Chloride 0.9% 10 ML Syringe FLUSH PRN (12:26)
[2024-10-12] MEDS ORDERED: Sodium Chloride 0.9% 2.5 ML Syringe FLUSH PRN (12:26)
[2024-10-12 12:33] LABS: BASOPHILS ABSOLUTE AUTO 0.03 K/uL (0.00-0.20); BASOPHILS PERCENT AUTO 0.4 % (0.0-1.0); EOSINOPHILS ABSOLUTE AUTO 0.04 K/uL (0.00-0.45); EOSINOPHILS PERCENT AUTO 0.6 % (0.0-6.0); IMMATURE GRAN ABSOLUTE AUTO 0.02 K/uL (0.00-0.05); IMMATURE GRAN PERCENT AUTO 0.3 % (0.0-0.4); LYMPHOCYTES ABSOLUTE AUTO 1.67 K/uL (1.00-4.80); LYMPHOCYTES PERCENT AUTO 23.0 % (24.0-44.0); MEAN PLATELET VOLUME 12.0 fL (9.4-12.3); MONOCYTES ABSOLUTE AUTO 0.58 K/uL (0.00-0.80); MONOCYTES PERCENT AUTO 8.0 % (0.0-8.0); NEUTROPHILS ABSOLUTE AUTO 4.92 K/uL (1.80-7.70); NEUTROPHILS PERCENT AUTO 67.7 % (41.0-71.0); NRBC ABSOLUTE 0.00 K/uL (0.00-0.02); NRBC PERCENT 0.0 /100WBC (0.0-0.2); PLATELET COUNT,PLT 141 K/uL (150-400); RED BLOOD CELL COUNT 4.11 M/uL (4.10-5.30); WHITE BLOOD CELL COUNT,WBC 7.26 K/uL (3.9-11.3)
[2024-10-12 13:04] LABS: A/G RATIO 1.1 (0.9-1.6); ALANINE AMINOTRANSFERASE,ALT 28.0 IU/L (14-63); ASPARTATE AMNIOTRANSFERASE,AST 15.0 IU/L (15-37); BILIRUBIN TOTAL 0.3 mg/dL (0.2-1.0); BLOOD UREA NITROGEN,BUN 9.0 mg/dL (7.0-18.0); CARBON DIOXIDE,CO2 26.4 mmol/L (21.0-32.0); CHLORIDE,CL 103.0 mmol/L (98-107); CREATININE 0.9 mg/dL (0.6-1.0); EST CRCL DRUG DOSING (CG) 81.07 mL/min; GLUCOSE RANDOM 72.0 mg/dL (74-106); POTASSIUM,K 3.6 mmol/L (3.5-5.1); PROTEIN TOTAL,TP 6.4 g/dL (6.4-8.2); SODIUM,NA 138.0 mmol/L (136-145)
[2024-10-12 13:06] LABS: ESTIMATED GFR 88.0 mL/min (>60)
[2024-10-12 13:17] LABS: APPEARANCE,URINE SLT CLOUDY; GLUCOSE,URINE NEGATIVE (NEGATIVE); OCCULT BLOOD,URINE NEGATIVE (NEGATIVE)
[2024-10-12 13:30] LABS: EPITHELIAL CELLS,URINE FEW (NONE-FEW)
[2024-10-12 13:54] LABS: HCG QUANTITATIVE 271510.0 mIU/mL
== END 2024-10-12 16:05 | disposition home or self-care (01) ==
LOC: MW.ED 11:09
DX: O21.0 Mild hyperemesis gravidarum (principal); O99.891 Other specified diseases and conditions complicating pregnancy; R10.13 Epigastric pain; Z90.49 Acquired absence of other specified parts of digestive tract; Z79.899 Other long term (current) drug therapy; Z88.2 Allergy status to sulfonamides; Z88.8 Allergy status to other drugs, medicaments and biological substances; Z3A.08 8 weeks gestation of pregnancy
CPT/HCPCS: 36415; 76705; 76705-26; 76801; 76801-26; 80053; 81001; 83690; 83735; 84702; 85025; 99283; 99284